=== PATIENT | male | born 1950 | race African-American/Black ===

== ENCOUNTER 2017-04-10 20:28 | Emergency (ER) | payer MEDICAID, MEDICARE, OTHER ==
[~2017-04-10] VITALS: Ht 182.9 cm; Wt 127.0 kg
[2017-04-11] MEDS ORDERED: HYDROcodone-ACET 5/325MG TAB PO ONE (00:15)
[2017-04-11] MEDS ORDERED: HYDROcodone-ACET 10/325MG TAB PO ONE ×2 (00:45)
[2017-04-11] MEDS ORDERED: TETANUS-DIPTH-ACEL PERTUSSIS 0.5ML SYRG IM ONE (00:45)
[2017-04-11 01:30] VITALS: BP 118/80
== END 2017-04-11 01:57 | disposition home or self-care (01) ==
LOC: ER 20:33
DX: S62.115A Nondisplaced fracture of triquetrum [cuneiform] bone, left wrist, initial encounter for closed fracture (principal); I10 Essential (primary) hypertension; M25.512 Pain in left shoulder; M19.90 Unspecified osteoarthritis, unspecified site; M25.522 Pain in left elbow; W19.XXXA Unspecified fall, initial encounter; Y93.89 Activity, other specified; Y99.8 Other external cause status; Y92.89 Other specified places as the place of occurrence of the external cause
CPT/HCPCS: 29125; 73020; 73080; 73110; 90715

== ENCOUNTER 2017-05-26 10:18 | Emergency (ER) | payer OTHER ==
[~2017-05-26] VITALS: Ht 185.4 cm; Wt 121.1 kg
[2017-05-26 10:25] VITALS: BP 156/74
[2017-05-26] MEDS ORDERED: KETOROLAC TROMETH 60MG/2ML VIAL IM ONE (12:15)
== END 2017-05-26 17:10 | disposition home or self-care (01) ==
LOC: ER 10:27
DX: S93.401A Sprain of unspecified ligament of right ankle, initial encounter (principal); M19.90 Unspecified osteoarthritis, unspecified site; I10 Essential (primary) hypertension; E66.9 Obesity, unspecified; Z68.35 Body mass index [BMI] 35.0-35.9, adult; X50.9XXA Other and unspecified overexertion or strenuous movements or postures, initial encounter; Y93.01 Activity, walking, marching and hiking; Y92.096 Garden or yard of other non-institutional residence as the place of occurrence of the external cause; Y99.8 Other external cause status
CPT/HCPCS: 73610; 96372; 99284; J1885

== ENCOUNTER 2019-07-12 15:06 | Emergency (ER) | payer OTHER ==
[~2019-07-12] VITALS: Ht 182.9 cm; Wt 127.0 kg
[~2019-07-12 15:06] MED LIST: AML5T PO; BACL10TA PO; FOLI1TAB6 PO; GABA-339 PO; HYDR-4798 PO; THIA100T10 PO; TRAZ150T84 PO
[2019-07-12 16:03] LABS: Basophils # (auto) 0.1 uL; Basophils % (auto) 1.2 % (0.0-2.0); Eosinophils # (auto) 0.1 uL; Eosinophils % (auto) 2.1 % (0.0-7.0); Hematocrit 42.8 % (41.0-53.0); Hemoglobin 14.3 g/dL (13.5-17.5); Lymphocytes # (auto) 1.7 uL; Lymphocytes % (auto) 31.2 % (10.0-50.0); Mean Corpuscular Hemoglobin 29.2 pg (28.0-32.0); Mean Corpuscular Hgb Conc. 33.5 g/dL (32.0-36.0); Mean Corpuscular Volume 87.1 fL (80.0-100.0); Monocytes # (auto) 0.5 uL; Monocytes % (auto) 9.5 % (0.0-12.0); Neutrophils # (auto) 3.1 uL; Platelet Count (auto) 241 10^3/uL (140-450); Red Blood Cells 4.91 10^6/uL (4.5-5.90); White Blood Cell 5.5 10^3/uL (4.4-10.8)
[2019-07-12 16:20] LABS: Salicylate < 1.7 mg/dL (2.8-20.0)
[2019-07-12 16:21] LABS: Albumin 3.2 g/dL (3.4-5.0); Calcium 8.5 mg/dL (8.5-10.1); Potassium 3.7 mmol/L (3.5-5.1)
[2019-07-12 16:25] LABS: Acetaminophen < 2.0 ug/mL (10-30)
[2019-07-12 16:29] LABS: BUN/Creatinine Ratio 10.4; Bilirubin, Total 0.3 mg/dL (0.2-1.0); Total Protein 7.4 g/dL (6.4-8.2)
[2019-07-12 17:24] LABS: Urine Bacteria NONE SEEN /hpf (None Seen); Urine Blood Negative /uL (Negative); Urine Specific Gravity 1.005 (1.001-1.035); Urine WBC <1 /hpf (0 - 3)
[2019-07-12 17:27] LABS: Amphetamine Screen, Urine NEGATIVE (NEGATIVE); Barbiturate Scree,Urine NEGATIVE (NEGATIVE); Benzodiazephine Screen, Urine POSITIVE (NEGATIVE); Cannabinoid Screen, Urine NEGATIVE (NEGATIVE); Cocaine Screen, Urine NEGATIVE (NEGATIVE); Phencyclidine Screen, Urine NEGATIVE (NEGATIVE)
[2019-07-12 18:00] LABS: Opiate Scree,Urine NEGATIVE (NEGATIVE)
[2019-07-13] MEDS ORDERED: FAMOTIDINE 20 MG TAB PO ONE (00:45)
[2019-07-13] MEDS ORDERED: DONNATAL 5ml ORAL Elix (BELLADONNA ALK-PHENOBARB) PO ONE (03:15)
[2019-07-13] MEDS ORDERED: ALUM & MAG HYDROX-SIMETH LIQ(MAALOX) 30 ML PO ONE (03:15)
[2019-07-13] MEDS ORDERED: LIDOCAINE VISCOUS 2% 15ML UD PO ONE (03:15)
[2019-07-13] MEDS ORDERED: cloNIDine HCL 0.1 MG TAB PO ONE (03:15)
[2019-07-13] MEDS ORDERED: OMEP20TA PO (08:17)
[2019-07-13] MEDS ORDERED: SERT-275 PO (08:17)
[2019-07-13] MEDS: amLODIPine BESYLATE 5 MG TAB PO SCH (11:56)
[2019-07-13] MEDS: PANTOPRAZOLE 40 MG TAB PO SCH (11:56)
[2019-07-13] MEDS: SERTRALINE HCL 50 MG TAB PO SCH (11:56)
[2019-07-13] MEDS: GABAPENTIN 300 MG CAP PO SCH ×2 (14:33→22:14)
[2019-07-13] MEDS: BACLOFEN 10 MG TAB PO SCH ×2 (14:33→22:14)
[2019-07-13] MEDS ORDERED: HYDROcodone-ACET 10/325MG TAB PO ONE (19:45)
[2019-07-13] MEDS ORDERED: traZODone HCL 50 MG TAB PO SCH (22:00)
[2019-07-14] MEDS: GABAPENTIN 300 MG CAP PO SCH (07:40)
[2019-07-14] MEDS: BACLOFEN 10 MG TAB PO SCH (07:40)
[2019-07-14] MEDS: PANTOPRAZOLE 40 MG TAB PO SCH (09:46)
[2019-07-14] MEDS: amLODIPine BESYLATE 5 MG TAB PO SCH (09:46)
[2019-07-14] MEDS: SERTRALINE HCL 50 MG TAB PO SCH (09:47)
[2019-07-14 09:56] VITALS: BP 125/82
== END 2019-07-14 10:24 | disposition short-term general hospital (02) ==
LOC: EDBD 15:06 → ER 15:06 → EDUNIT# 15:06 → ER 07-14 10:24
DX: R45.851 Suicidal ideations (principal); F32.9 Major depressive disorder, single episode, unspecified; F10.129 Alcohol abuse with intoxication, unspecified; I10 Essential (primary) hypertension; Y90.8 Blood alcohol level of 240 mg/100 ml or more
CPT/HCPCS: 36415; 80053; 80307; 80320; 80329; 81001; 85025; 94761; 99285; J7030

== ENCOUNTER 2019-08-28 14:47 | Inpatient (IN) | payer OTHER ==
[~2019-08-28] VITALS: Ht 182.9 cm; Wt 113.9 kg
--- NOTE | 2019-08-28 02:14 | NUR ---
Respiratory note: PT TAKEN OFF CPAP AT THIS TIME PER PT REQUEST. NO DISTRESS NOTED. HE IS AWARE TO CALL FOR RT IF HE WISHES TO GO BACK ON AGAIN.
[~2019-08-28 14:47] MED LIST changes: +OMEP20TA PO; +SERT-275 PO
[2019-08-28 17:23] LABS: White Blood Cell 12.3 10^3/uL (4.4-10.8)
[2019-08-28 17:32] LABS: Hematocrit 42.4 % (41.0-53.0); Hemoglobin 14.1 g/dL (13.5-17.5); Mean Corpuscular Hemoglobin 28.8 pg (28.0-32.0); Mean Corpuscular Hgb Conc. 33.2 g/dL (32.0-36.0); Mean Corpuscular Volume 86.9 fL (80.0-100.0); Platelet Count (auto) 186 10^3/uL (140-450); Red Blood Cells 4.88 10^6/uL (4.5-5.90); Red Cell Distribution Width 15.3 % (11.8-14.3)
[2019-08-28 17:39] LABS: Band Neutrophils % (manual) 0; Basophils % (manual) 0 (0.0-2.0); Blast Cells 0; Eosinophils % (manual) 0 (0-7); Metamyelocytes % 0; Myelocytes % 0; Promyelocytes % 0; Reactive Lymphocytes 0
[2019-08-28 17:43] LABS: Alanine Aminotransferase 13 U/L (16-61); Anion Gap 10 (5-15); Aspartate Aminotransferase 16 U/L (15-37); BUN/Creatinine Ratio 11.9; Blood Urea Nitrogen 15 mg/dL (7-18); Calcium 8.9 mg/dL (8.5-10.1); Carbon Dioxide 24 mmol/L (21-32); Chloride 101 mmol/L (98-107); GFR African American 73 mL/min; GFR Non-African American 60 mL/min; Glucose 115 mg/dL (74-106); Potassium 3.7 mmol/L (3.5-5.1); Sodium 135 mmol/L (136-145)
[2019-08-28 17:47] LABS: Alkaline Phosphatase 93 U/L (45-117); Bilirubin, Total 0.8 mg/dL (0.2-1.0); Total Protein 7.6 g/dL (6.4-8.2)
[2019-08-28 18:23] LABS: Urine WBC None Seen /hpf (0 - 3)
[2019-08-28 18:59] LABS: Urine Bacteria NONE SEEN /hpf (None Seen); Urine Blood Negative /uL (Negative); Urine Hyaline Cast MANY /lpf (0 - 2); Urine Specific Gravity 1.032 (1.001-1.035)
[2019-08-28 19:25] LABS: Lymphocytes % (manual) 6 (10.0-50.0); Monocytes % (manual) 6 (0-12)
[2019-08-28] MEDS ORDERED: NITROGLYCERIN 0.4 MG SL TAB SL PRN (19:45)
[2019-08-28] MEDS ORDERED: MORPHINE SULF INJ 2 MG/ML SYRINGE 1ML IV PRN (19:45)
[2019-08-28 22:05] VITALS: BP 158/78
[2019-08-28] MEDS: METOPROLOL TARTRATE 25 MG TAB PO SCH (22:14)
[2019-08-28] MEDS: traZODone HCL 50 MG TAB PO SCH (22:14)
[2019-08-28 22:20] VITALS: BP 158/78
--- NOTE | 2019-08-28 22:30 | NUR ---
Telemetry admit from ER NEALNADYA admitted to Telemetry unit after SBAR received. Patient oriented to Skyla torre RN, unit, room, bed, and unit policies regarding patient care and visiting hours. Patient now on continuous telemetry monitoring, tele box # 28 and telemetry reading on arrival to unit is SR 75. Patient placed on bedside oxygen, weighed by bed scale and encouraged to call if they need something. All questions and concerns addressed, patient verbalized understanding. Note: Came per stretcher awake alert oriented x 4, not in respiratory distress, placed in the bed comfortably, vital checked.
[2019-08-28] MEDS: PIPERACILLIN-TAZOB 3.375GM 100 ML IV SCH (23:38)
[2019-08-29 00:35] VITALS: BP 158/78
--- NOTE | 2019-08-29 00:36 | NUR ---
returned call Martín returned call, updated on patient status and reason for call ,need pain med for back and hand, orders received of [place] 5/325mg..p.o x one. Continue care.
[2019-08-29] MEDS ORDERED: HYDROcodone-ACET 5/325MG TAB PO ONE (00:45)
[2019-08-29] MEDS ORDERED: PNEUMOCOCCAL VACC POLYS 25 MCG/0.5 ML VIAL IM ONE (01:30)
[2019-08-29 05:00] VITALS: BP 154/91
[2019-08-29] MEDS: PIPERACILLIN-TAZOB 3.375GM 100 ML IV SCH ×4 (05:45→23:58)
--- NOTE | 2019-08-29 06:08 | NUR ---
Patient wants the pneumonia vaccine on discharge day.
[2019-08-29 06:10] LABS: Basophils # (auto) 0 uL; Basophils % (auto) 0.5 % (0.0-2.0); Eosinophils # (auto) 0.2 uL; Eosinophils % (auto) 2.6 % (0.0-7.0); Hematocrit 38.3 % (41.0-53.0); Hemoglobin 12.9 g/dL (13.5-17.5); Lymphocytes # (auto) 0.8 uL; Lymphocytes % (auto) 8.2 % (10.0-50.0); Mean Corpuscular Hemoglobin 29.1 pg (28.0-32.0); Mean Corpuscular Hgb Conc. 33.7 g/dL (32.0-36.0); Mean Corpuscular Volume 86.5 fL (80.0-100.0); Monocytes # (auto) 0.8 uL; Monocytes % (auto) 9.1 % (0.0-12.0); Neutrophils # (auto) 7.3 uL; Neutrophils % (auto) 79.6 % (37.0-80.0); Nucleated Red Blood Cells % 0.1 %; Platelet Count (auto) 161 10^3/uL (140-450); Red Blood Cells 4.42 10^6/uL (4.5-5.90); Red Cell Distribution Width 15.5 % (11.8-14.3); White Blood Cell 9.2 10^3/uL (4.4-10.8)
--- NOTE | 2019-08-29 06:17 | NUR ---
Respiratory note: PT FOUND OFF OF THE CPAP AND ON RA BREATHING COMFORTABLY. POX 97%, HR 80, RR 16. NO SOB NOTED. CPAP REMAINS AT BEDSIDE.
[2019-08-29 06:28] LABS: INR 0.98 (0.9-1.15); Partial Thromboplastin Time 31.6 sec (23.64-32.05)
[2019-08-29 06:38] LABS: Potassium 3.5 mmol/L (3.5-5.1)
[2019-08-29 06:45] LABS: Albumin 2.6 g/dL (3.4-5.0); BUN/Creatinine Ratio 15.3; Total Protein 6.9 g/dL (6.4-8.2)
--- NOTE | 2019-08-29 07:21 | NUR ---
Care report given to Tiffanie Trinidad , to follow-up to hospitalist his pain med.and other home meds.to evaluate.
--- NOTE | 2019-08-29 07:44 | NUR ---
OPENING SHIFT NOTE: PATIENT RESTING IN BED, AWAKE. DISCUSSED PLAN OF CARE, UPDATED PATIENT CARE BOARD. CALL LIGHT WITHIN REACH. PATIENT VERBALIZED UNDERSTANDING. GAVE PATIENT SANI CLOTH FOR HANDS. BED ALARM IN PLACE. WILL CONTINUE TO MONITOR.
[2019-08-29 09:00] VITALS: BP 131/76
[2019-08-29] MEDS: FAMOTIDINE 20 MG TAB PO SCH (10:14)
[2019-08-29] MEDS: METOPROLOL TARTRATE 25 MG TAB PO SCH ×2 (10:14→23:05)
[2019-08-29] MEDS: LISINOPRIL 10 MG TAB PO SCH (10:14)
[2019-08-29] MEDS: SERTRALINE HCL 50 MG TAB PO SCH (10:15)
[2019-08-29 13:00] VITALS: BP 120/67
[2019-08-29 13:08] VITALS: BP 110/67
--- NOTE | 2019-08-29 14:55 | NUR ---
VOICEMAIL LEFT FOR Michael RIGGS REGARDING CT SCAN.
--- NOTE | 2019-08-29 15:20 | NUR ---
Michael RIGGS ROUNDING. NEW ORDERS GIVEN.
--- NOTE | 2019-08-29 15:43 | NUR ---
PAGED OVERHEAD PHYSICAL THERAPY
--- NOTE | 2019-08-29 15:45 | NUR ---
SPOKE WITH MD Michael RIGGS REGARDING PAIN MEDS. NEW ORDERS GIVEN.
--- NOTE | 2019-08-29 16:00 | NUR ---
SPOKE WITH JESSICA SENIOR GL ACCOUNTANT. INFORMED HER OF CT TO STILL BE DONE, WELL MRI PER MD Michael RIGGS REQUEST.
--- NOTE | 2019-08-29 16:20 | NUR ---
DR. PANIAGUA AT BEDSIDE.
--- NOTE | 2019-08-29 16:28 | NUR ---
PAGE TO PHYSICAL THERAPY MADE BY THIS RN.
--- NOTE | 2019-08-29 16:40 | NUR ---
PAGED OVERHEAD PHYSICAL THERAPY.
--- NOTE | 2019-08-29 16:43 | NUR ---
D/C Planning Per Consult for home health safety evaluation. Contacted [facility] ph:) Fax:) faxed medical records. Per Shawna from [facility] Pt has been accepted and service to start within 48hrs upon d/c day. Contacted [facility] ph:) fax:) faxed medical records regarding authorization. Addendum: 08/29/19 at 1646 by ROYA ARITA Amended: Links added.
[2019-08-29] MEDS: IBUPROFEN 800 MG TAB PO PRN (16:45)
--- NOTE | 2019-08-29 16:46 | NUR ---
PAGED PHYSICAL THERAPY JYOTI, VOICEMAIL LEFT BY THIS RN.
--- NOTE | 2019-08-29 16:50 | NUR ---
HOSE CEMENTER CALLED, REGARDING JYOTI WITH PHYSICAL THERAPY.
--- NOTE | 2019-08-29 17:04 | NUR ---
PHYSICAL THERAPY AT BEDSIDE. PATIENT UNABLE TO TRANSFER TO CHAIR AT THIS TIME, PHYSICAL THERAPIST JYOTI RECCOMENDING SNF.
--- NOTE | 2019-08-29 17:05 | NUR ---
MD Michael RIGGS MADE AWARE OF PHYSICAL THERAPY EVAL. SNF PAPERWORK PRINTED.
--- NOTE | 2019-08-29 17:07 | NUR ---
PATIENT TAKEN DOWN TO MRI.
--- NOTE | 2019-08-29 18:10 | NUR ---
PATIENT BACK FROM RADIOLOGY.
--- NOTE | 2019-08-29 18:30 | NUR ---
CLOSING SHIFT NOTE: PATIENT RESTING IN BED. IV RE-INITIATED. BED ALARM IN PLACE. CALL LIGHT WITHIN REACH. UPDATED ON PLAN OF CARE REGARDING DISCHARGE PLANNING. PATIENT VERBALIZED UNDERSTANDING. BED LOCKED AND IN LOWEST POSITION. EDUCATED PATIENT TO CALL FOR ANY ASSISTANCE. WILL ENDORSE CARE TO NOC RN.
--- NOTE | 2019-08-29 18:51 | NUR ---
FAX SENT TO [facility]: PER REQUEST FROM [facility], MEDICAID BILLING SPECIALIST FOR SNF PLACEMENT.
--- NOTE | 2019-08-29 19:22 | NUR ---
CARE ENDORSED TO KEMI FRANK
--- NOTE | 2019-08-29 19:27 | NUR ---
Opening Shift Note Assumed care of patient, awake and alert. No S/S of distress/SOB or pain. Instructed on POC and to call for assist PRN, will continue to monitor for changes Q1hr and PRN.
[2019-08-29 21:34] VITALS: BP 117/63
--- NOTE | 2019-08-29 22:19 | NUR ---
RT NOTE PT WAS SEEN BY RT FOR PLACEMENT OF CPAP FOR THE NIGHT. PT STATES THAT HE IS NOT READY TO GO ON YET AND COULD RT RETURN AROUND MIDNIGHT. NO SOB OR DISTRESS NOTED AT THIS TIME. CONT ORDERED Addendum: 08/29/19 at 2224 by Vivian Connor RT SPOKE WITH MONIKA MCMULLEN. WILL CALL IF PT CHANGES HIS MIND.
[2019-08-29] MEDS: traZODone HCL 50 MG TAB PO SCH (23:05)
--- NOTE | 2019-08-30 00:19 | NUR ---
RT NOTE PT WAS SEEN BY RT FOR CPAP PLACEMENT AT THIS TIME. PT STATES IF HE IS ALREADY ASLEEP, PLEASE DO NOT AWAKEN HIM. PT STATES HE WOULD TRY CPAP ONLY IF STILL AWAKE AT MIDNIGHT CHECK. RN KEMI AWARE PT REFUSED CPAP FOR THE NIGHT AND WILL CALL IF HE CHANGES HIS MIND. NO SOB OR DISTRESS NOTED AT THIS TIME. CONT ORDERED
[2019-08-30 05:00] VITALS: BP 140/87
[2019-08-30] MEDS: PIPERACILLIN-TAZOB 3.375GM 100 ML IV SCH (06:00)
--- NOTE | 2019-08-30 07:17 | NUR ---
Respiratory note: Pt not wearing CPAP at this time. Pt sleeping comfortably in bed, no s/s of respiratory distress noted. HR 72, RR 16, POX 97% on room air. Breath sounds clear throughout. Pt says he slept with no issues last night, but does want to wear the CPAP tonight. Will endorse pt care to noc shift RT.
--- NOTE | 2019-08-30 07:22 | NUR ---
SHIFT CLOSING NOTE. ENDORSED CARE OF PATIENT TO DAY SHIFT, MONIKA BROWER.
--- NOTE | 2019-08-30 07:28 | NUR ---
OPENING SHIFT NOTE: PATIENT ASLEEP IN BED, SIDE-LYING. BREATHING EVEN AND UNLABORED. BED IN LOWEST LOCKED POSITION. CALL LIGHT WITHIN REACH. WILL CONTINUE TO MONITOR.
[2019-08-30 09:00] VITALS: BP 117/69
[2019-08-30] MEDS: LISINOPRIL 10 MG TAB PO SCH (09:08)
[2019-08-30] MEDS: FAMOTIDINE 20 MG TAB PO SCH (09:08)
[2019-08-30] MEDS: SERTRALINE HCL 50 MG TAB PO SCH (09:09)
[2019-08-30] MEDS: METOPROLOL TARTRATE 25 MG TAB PO SCH (10:10)
--- NOTE | 2019-08-30 10:37 | NUR ---
PATIENT HAS FWW BROUGHT IN BY FAMILY AT BEDSIDE.
[2019-08-30] MEDS: IBUPROFEN 800 MG TAB PO PRN (10:42)
--- NOTE | 2019-08-30 11:03 | NUR ---
PATIENT UP OUT OF BED WITH PHYSICAL THERAPY USING WALKER.
--- NOTE | 2019-08-30 11:04 | NUR ---
DC PLANNING- SNF TRANSFER SPOKE WITH ROYA MORENO, [facility] TO ACCEPT PATIENT THIS AFTERNOON. ROOM 52B, AT 3PM BY [facility], ACCEPTING MD IS Amador JANE.
[2019-08-30 12:36] LABS: Hepatitis A Ab IgM Negative; Hepatitis B Core IgM Negative; Hepatitis B Surface Antigen Negative (Negative)
[2019-08-30 12:37] LABS: Hepatitis C Antibody Negative (Negative)
[2019-08-30 13:00] VITALS: BP 95/38
--- NOTE | 2019-08-30 15:46 | NUR ---
D/C Planning Per consult for SNF placement for physical therapy. Contacted and faxed medical records to [facility], [facility] and [facility]. Per Cruzito from [facility] Pt has been accepted to room 52[address] accepting MD Dr. Amador Elizabeth. Contacted [facility] transport ph:) Fax:) faxed transport form request. Advised Sheldon from [facility] transport to arrange transportation between the hours 15:30-16:00. Informed MONIKA Jacques. Addendum: 08/30/19 at 1600 by ROYA ARITA Amended: Links added.
--- NOTE | 2019-08-30 16:08 | NUR ---
DISCHARGE NOTE: PATIENT DISCHARGED TO SNF. [facility] TOOK PATIENT BY [facility]. PATIENT ABLE TO TRANSFER TO [facility]. PATIENT LEFT WITH ALL BELONGINGS AND PERSONAL WALKER. EVEN AND UNLABORED RESPIRATIONS NOTED NO SIGNS OF DISTRESS. IV DISCONTINUED. MANUAL PRESSURE APPLIED. CATHETER INTACT. ADDRESSED ALL CONCERNS.
== END 2019-08-30 16:06 | DRG 291 ==
LOC: EDBD 14:47 → EDUNIT# 14:47 → ER 14:47 → EDSEX 14:47 → TELE 14:48 → TELE-CENTR 22:32
PROVIDERS: ADMIT Nurse Practitioner Acute Care; ATTEND Internal Medicine
DX: I11.0 Hypertensive heart disease with heart failure (principal); I50.31 Acute diastolic (congestive) heart failure; E44.1 Mild protein-calorie malnutrition; R07.9 Chest pain, unspecified; E86.0 Dehydration; G47.33 Obstructive sleep apnea (adult) (pediatric); K21.9 Gastro-esophageal reflux disease without esophagitis; F31.9 Bipolar disorder, unspecified; E66.9 Obesity, unspecified; D72.829 Elevated white blood cell count, unspecified; M19.90 Unspecified osteoarthritis, unspecified site; M54.30 Sciatica, unspecified side; G89.29 Other chronic pain; Z74.01 Bed confinement status; Z79.899 Other long term (current) drug therapy; Z80.42 Family history of malignant neoplasm of prostate; Z68.34 Body mass index [BMI] 34.0-34.9, adult
CPT/HCPCS: 36415; 71045; 72131; 72148; 76705; 80053; 80074; 81001; 83880; 84484; 85007; 85025; 85027; 85610; 85730; 86141; 87081; 93971; 94660; 96365; 97116; 97163; 97530; G0378; J2543

== ENCOUNTER 2020-03-20 15:57 | Emergency (ER) | payer OTHER ==
[~2020-03-20] VITALS: Ht 185.4 cm; Wt 100.2 kg
[~2020-03-20 15:57] MED LIST changes: -AML5T PO; -BACL10TA PO; +ENO100SY SC; -GABA-339 PO; -HYDR-4798 PO; +LEVO500T21 PO; +METR500T PO; +WARF3TAB22 PO
[2020-03-20] MEDS ORDERED: SODIUM CHLORIDE 0.9% 1,000 ML IV ONE (16:07)
[2020-03-20 16:59] LABS: Basophils # (auto) 0 10 ^3/uL (0-0.2); Eosinophils # (auto) 0.1 10 ^3/uL (0-0.8); Lymphocytes # (auto) 1.5 10 ^3/uL (0.4-5.4); Mean Corpuscular Hemoglobin 26.9 pg (28.0-32.0); Monocytes # (auto) 0.3 10 ^3/uL (0-1.3); Nucleated Red Blood Cells % 0.2 %
[2020-03-20 17:01] LABS: Basophils % (auto) 0.5 % (0.0-2.0); Eosinophils % (auto) 1.6 % (0.0-7.0); Hematocrit 42.9 % (41.0-53.0); Lymphocytes % (auto) 24.4 % (10.0-50.0); Mean Corpuscular Hgb Conc. 32.7 g/dL (32.0-36.0); Mean Corpuscular Volume 82.3 fL (80.0-100.0); Monocytes % (auto) 5.7 % (0.0-12.0); Neutrophils % (auto) 67.8 % (37.0-80.0); Platelet Count (auto) 145 10^3/uL (140-450); Red Blood Cells 5.21 10^6/uL (4.5-5.90); Red Cell Distribution Width 14.8 % (11.8-14.3); White Blood Cell 5.9 10^3/uL (4.4-10.8)
[2020-03-20 17:10] LABS: Alanine Aminotransferase 18 U/L (16-61); Albumin 3.5 g/dL (3.4-5.0); Anion Gap 11 (5-15); Aspartate Aminotransferase 21 U/L (15-37); BUN/Creatinine Ratio 11.7; Blood Urea Nitrogen 11 mg/dL (7-18); Calcium 8.4 mg/dL (8.5-10.1); Carbon Dioxide 20 mmol/L (21-32); Chloride 108 mmol/L (98-107); GFR African American 102 mL/min; GFR Non-African American 85 mL/min; Glucose 84 mg/dL (74-106); Potassium 3.3 mmol/L (3.5-5.1); Sodium 139 mmol/L (136-145)
[2020-03-20 17:14] LABS: Alkaline Phosphatase 120 U/L (45-117); Bilirubin, Total 0.4 mg/dL (0.2-1.0); Total Protein 7.2 g/dL (6.4-8.2)
[2020-03-20 18:10] LABS: Amphetamine Screen, Urine NEGATIVE (NEGATIVE); Barbiturate Scree,Urine NEGATIVE (NEGATIVE); Benzodiazephine Screen, Urine NEGATIVE (NEGATIVE); Cannabinoid Screen, Urine NEGATIVE (NEGATIVE); Cocaine Screen, Urine NEGATIVE (NEGATIVE); Opiate Scree,Urine NEGATIVE (NEGATIVE); Phencyclidine Screen, Urine NEGATIVE (NEGATIVE)
[2020-03-20 18:33] VITALS: BP 138/87
== END 2020-03-20 18:53 | disposition home or self-care (01) ==
LOC: EDBD 15:57 → ER 15:57
DX: F10.129 Alcohol abuse with intoxication, unspecified (principal); R55 Syncope and collapse
CPT/HCPCS: 36415; 70450; 80053; 80307; 80320; 84484; 85025; 93005; 96360; 99285; J7030; J7040

== ENCOUNTER 2020-06-22 16:21 | Emergency (ER) | payer OTHER, MEDICAID ==
[~2020-06-22] VITALS: Ht 185.4 cm; Wt 113.4 kg
[2020-06-22 16:26] VITALS: BP 115/64
== END 2020-06-23 01:47 | disposition left against medical advice (07) ==
LOC: EDBD 16:21 → EDUNIT# 16:21 → ER 16:21
DX: R51 Headache (principal); M54.2 Cervicalgia; Z53.21 Procedure and treatment not carried out due to patient leaving prior to being seen by health care provider
CPT/HCPCS: 70450; 72125

== ENCOUNTER 2020-06-28 11:47 | Emergency (ER) | payer OTHER, MEDICAID ==
[~2020-06-28] VITALS: Ht 182.9 cm; Wt 108.9 kg
[2020-06-28] MEDS ORDERED: ACETAMINOPHEN 325 MG TAB PO ONE (13:30)
[2020-06-28 14:03] VITALS: BP 125/88
== END 2020-06-28 14:12 | disposition home or self-care (01) ==
LOC: EDBD 11:47 → ER 11:47
DX: S00.03XA Contusion of scalp, initial encounter (principal); W18.39XA Other fall on same level, initial encounter; Y93.89 Activity, other specified; Y92.89 Other specified places as the place of occurrence of the external cause; Y99.8 Other external cause status

== ENCOUNTER 2020-10-01 19:48 | Emergency (ER) | payer OTHER, MEDICAID ==
[~2020-10-01] VITALS: Ht 182.9 cm; Wt 111.1 kg
[2020-10-01 20:02] VITALS: BP 131/81
[2020-10-01 20:33] LABS: Basophils # (auto) 0.1 10 ^3/uL (0-0.2); Basophils % (auto) 1.6 % (0.0-2.0); Eosinophils # (auto) 0.1 10 ^3/uL (0-0.8); Eosinophils % (auto) 2.3 % (0.0-7.0); Hemoglobin 12.9 g/dL (13.5-17.5); Lymphocytes % (auto) 22.1 % (10.0-50.0); Mean Corpuscular Hemoglobin 31.1 pg (28.0-32.0); Mean Corpuscular Hgb Conc. 33.8 g/dL (32.0-36.0); Monocytes # (auto) 0.4 10 ^3/uL (0-1.3); Neutrophils # (auto) 2.9 10 ^3/uL (1.6-8.6); Nucleated Red Blood Cells % 0.2 %; Platelet Count (auto) 208 10^3/uL (140-450); Red Blood Cells 4.14 10^6/uL (4.5-5.90); Red Cell Distribution Width 14.5 % (11.8-14.3); White Blood Cell 4.5 10^3/uL (4.4-10.8)
[2020-10-01 20:55] LABS: INR 0.96 (0.9-1.15); Partial Thromboplastin Time 22.7 sec (23.0-31.2)
[2020-10-01 20:58] LABS: Albumin 3.5 g/dL (3.4-5.0); Anion Gap 11 (5-15); Blood Urea Nitrogen 22 mg/dL (7-18); Calcium 8.7 mg/dL (8.5-10.1); Carbon Dioxide 20 mmol/L (21-32); Chloride 112 mmol/L (98-107); Glucose 89 mg/dL (74-106); Potassium 3.5 mmol/L (3.5-5.1); Sodium 143 mmol/L (136-145)
[2020-10-01 21:04] LABS: Alanine Aminotransferase 16 U/L (16-61); Alkaline Phosphatase 88 U/L (45-117); Aspartate Aminotransferase 19 U/L (15-37); BUN/Creatinine Ratio 17.9; Bilirubin, Total 0.2 mg/dL (0.2-1.0); GFR African American 75 mL/min; GFR Non-African American 62 mL/min; Total Protein 7.5 g/dL (6.4-8.2)
== END 2020-10-01 22:22 | disposition left against medical advice (07) ==
LOC: ER 19:51
DX: R07.89 Other chest pain (principal); Z53.21 Procedure and treatment not carried out due to patient leaving prior to being seen by health care provider
CPT/HCPCS: 36415; 71045; 80053; 83880; 84484; 85025; 85610; 85730

== ENCOUNTER 2021-02-13 20:38 | Emergency (ER) | payer OTHER, MEDICAID ==
[~2021-02-13] VITALS: Ht 188 cm; Wt 108.9 kg
[~2021-02-13 20:38] MED LIST changes: -LEVO500T21 PO; +LEVO500T31 PO
[2021-02-13 20:40] VITALS: BP 142/78
== END 2021-02-13 23:17 | disposition home or self-care (01) ==
LOC: EDBD 20:38 → ER 20:38
DX: S43.401A Unspecified sprain of right shoulder joint, initial encounter (principal); S70.11XA Contusion of right thigh, initial encounter; F10.129 Alcohol abuse with intoxication, unspecified; I10 Essential (primary) hypertension; Y90.8 Blood alcohol level of 240 mg/100 ml or more; W18.39XA Other fall on same level, initial encounter; Y93.89 Activity, other specified; Y92.89 Other specified places as the place of occurrence of the external cause; Y99.8 Other external cause status
CPT/HCPCS: 73030; 93005

== ENCOUNTER 2021-06-19 20:31 | Emergency (ER) | payer OTHER, MEDICAID ==
[~2021-06-19] VITALS: Ht 182.9 cm; Wt 129.3 kg
[~2021-06-19 20:31] MED LIST changes: -SERT-275 PO; +SERT25TA14 PO
[2021-06-19 23:13] LABS: Basophils # (auto) 0 10 ^3/uL (0-0.2); Basophils % (auto) 0.7 % (0.0-2.0); Eosinophils # (auto) 0.1 10 ^3/uL (0-0.8); Eosinophils % (auto) 1.8 % (0.0-7.0); Hematocrit 38.2 % (41.0-53.0); Hemoglobin 12.6 g/dL (13.5-17.5); Lymphocytes # (auto) 1.2 10 ^3/uL (0.4-5.4); Lymphocytes % (auto) 25.1 % (10.0-50.0); Mean Corpuscular Hemoglobin 28.9 pg (28.0-32.0); Mean Corpuscular Volume 87.4 fL (80.0-100.0); Monocytes # (auto) 0.3 10 ^3/uL (0-1.3); Monocytes % (auto) 7.1 % (0.0-12.0); Neutrophils # (auto) 3.1 10 ^3/uL (1.6-8.6); Neutrophils % (auto) 65.3 % (37.0-80.0); Red Blood Cells 4.38 10^6/uL (4.5-5.90); Red Cell Distribution Width 18.2 % (11.8-14.3); White Blood Cell 4.7 10^3/uL (4.4-10.8)
[2021-06-19 23:29] LABS: Albumin 3.4 g/dL (3.4-5.0); Anion Gap 11 (5-15); Blood Urea Nitrogen 22 mg/dL (7-18); Calcium 8.5 mg/dL (8.5-10.1); Carbon Dioxide 20 mmol/L (21-32); Chloride 112 mmol/L (98-107); Glucose 81 mg/dL (74-106); Potassium 3.7 mmol/L (3.5-5.1); Sodium 143 mmol/L (136-145)
[2021-06-19 23:34] LABS: Alanine Aminotransferase 29 U/L (16-61); Alkaline Phosphatase 119 U/L (45-117); Aspartate Aminotransferase 26 U/L (15-37); BUN/Creatinine Ratio 18.5; Bilirubin, Total 0.2 mg/dL (0.2-1.0); GFR African American 78 mL/min; GFR Non-African American 64 mL/min; Total Protein 7.5 g/dL (6.4-8.2)
[2021-06-20] MEDS ORDERED: KETOROLAC TROMETH 30 MG/ML 1ML VIAL IV ONE (02:15)
[2021-06-20 05:23] VITALS: BP 169/86
[2021-06-20 05:25] LABS: Urine Bacteria FEW /hpf (None Seen); Urine Blood Negative /uL (Negative); Urine Mucus FEW (None Seen); Urine Specific Gravity 1.011 (1.001-1.035); Urine WBC 1 /hpf (0 - 3)
== END 2021-06-20 05:55 | disposition home or self-care (01) ==
LOC: EDBD 20:31 → ER 20:31 → EDUNIT# 20:31 → ER 06-20 05:55
DX: S70.11XA Contusion of right thigh, initial encounter (principal); S70.01XA Contusion of right hip, initial encounter; S93.431A Sprain of tibiofibular ligament of right ankle, initial encounter; S00.93XA Contusion of unspecified part of head, initial encounter; R55 Syncope and collapse; F10.129 Alcohol abuse with intoxication, unspecified; I10 Essential (primary) hypertension; K21.9 Gastro-esophageal reflux disease without esophagitis; I48.91 Unspecified atrial fibrillation; W18.39XA Other fall on same level, initial encounter; Y93.89 Activity, other specified; Y92.89 Other specified places as the place of occurrence of the external cause; Y99.8 Other external cause status; Y90.8 Blood alcohol level of 240 mg/100 ml or more
CPT/HCPCS: 36415; 70450; 72192; 73560; 73590; 80053; 80320; 81001; 84484; 85025; 93005; 96374; 99285; J1885

== ENCOUNTER 2021-10-11 07:15 | Emergency (ER) | payer OTHER, MEDICAID ==
[~2021-10-11] VITALS: Ht 188 cm; Wt 117.9 kg
[2021-10-11 08:21] LABS: Basophils # (auto) 0 10 ^3/uL (0-0.2); Basophils % (auto) 0.9 % (0.0-2.0); Eosinophils # (auto) 0.1 10 ^3/uL (0-0.8); Eosinophils % (auto) 1.7 % (0.0-7.0); Hematocrit 36.1 % (41.0-53.0); Hemoglobin 11.9 g/dL (13.5-17.5); Lymphocytes # (auto) 0.6 10 ^3/uL (0.4-5.4); Lymphocytes % (auto) 12.2 % (10.0-50.0); Mean Corpuscular Hemoglobin 29.6 pg (28.0-32.0); Mean Corpuscular Volume 89.7 fL (80.0-100.0); Monocytes # (auto) 0.5 10 ^3/uL (0-1.3); Neutrophils # (auto) 3.9 10 ^3/uL (1.6-8.6); Neutrophils % (auto) 76.2 % (37.0-80.0); Nucleated Red Blood Cells % 0.1 %; Red Blood Cells 4.02 10^6/uL (4.5-5.90); Red Cell Distribution Width 17.5 % (11.8-14.3); White Blood Cell 5.2 10^3/uL (4.4-10.8)
[2021-10-11 08:38] LABS: Albumin 2.9 g/dL (3.4-5.0); Calcium 8.6 mg/dL (8.5-10.1); Potassium 4.1 mmol/L (3.5-5.1)
[2021-10-11 08:44] LABS: BUN/Creatinine Ratio 11.2; Total Protein 7.2 g/dL (6.4-8.2)
[2021-10-11 08:46] LABS: Urine WBC None Seen /hpf (0 - 3)
[2021-10-11 08:59] LABS: Urine Bacteria NONE SEEN /hpf (None Seen); Urine Blood Negative /uL (Negative); Urine Hyaline Cast FEW /lpf (0 - 2); Urine Mucus FEW (None Seen); Urine Specific Gravity 1.016 (1.001-1.035)
[2021-10-11 09:25] LABS: INR 1.05 (0.9-1.15); Partial Thromboplastin Time 29.1 sec (23.6-33.0)
[2021-10-11] MEDS ORDERED: SODIUM CHLORIDE 0.9% 1,000 ML IV ONE (11:15)
[2021-10-11] MEDS: MAGNESIUM SULFATE 1GM/100ML 100 ML IV SCH ×3 (12:13→15:22)
[2021-10-11] MEDS ORDERED: DexAMETHasone SOD PHOS 10MG/1ML VIAL INJ IV ONE (13:30)
[2021-10-11] MEDS ORDERED: COLCHICINE 0.6 MG CAP PO ONE (13:30)
[2021-10-11] MEDS ORDERED: cloNIDine HCL 0.1 MG TAB PO ONE (16:35)
[2021-10-11] MEDS ORDERED: IOHEXOL 350 MG/ML 100ML IJ ONE (16:39)
[2021-10-11 18:28] VITALS: BP 150/80
== END 2021-10-11 17:52 | disposition home or self-care (01) ==
LOC: ER 07:15 → EDBD 07:15 → ER 17:52
DX: R07.89 Other chest pain (principal); K21.9 Gastro-esophageal reflux disease without esophagitis; I10 Essential (primary) hypertension; M10.9 Gout, unspecified; E44.0 Moderate protein-calorie malnutrition; E83.42 Hypomagnesemia; E03.9 Hypothyroidism, unspecified; Z68.33 Body mass index [BMI] 33.0-33.9, adult
CPT/HCPCS: 36415; 71045; 71275; 73070; 73120; 73600; 80053; 81001; 83735; 83880; 84443; 84484; 84550; 85025; 85379; 85610; 85730; 93005; 96361; 96365; 96366; 96375; 99285; J1100; J3475; J7030; Q9967

== ENCOUNTER 2022-01-30 09:48 | Emergency (ER) | payer MEDICAID, OTHER ==
[~2022-01-30] VITALS: Ht 182.9 cm; Wt 108.9 kg
[2022-01-30] MEDS ORDERED: SODIUM CHLORIDE 0.9% 1,000 ML IVB ONE (11:00)
[2022-01-30] MEDS ORDERED: hydrALAZINE HCL 20 MG/ML VL IV ONE (11:00)
[2022-01-30] MEDS ORDERED: LORazepam 2MG/ML-1ML VIAL IV ONE ×3 (11:00→19:00)
[2022-01-30] MEDS ORDERED: LABETALOL HCL 5 MG/ML 4ML SYRINGE IV ONE (11:00)
[2022-01-30] MEDS ORDERED: PANTOPRAZOLE 40 MG TAB PO ONE (11:00)
[2022-01-30 11:17] LABS: Basophils # (auto) 0 10 ^3/uL (0-0.2); Basophils % (auto) 0.5 % (0.0-2.0); Eosinophils # (auto) 0 10 ^3/uL (0-0.8); Eosinophils % (auto) 0.3 % (0.0-7.0); Hematocrit 40.4 % (41.0-53.0); Hemoglobin 13.9 g/dL (13.5-17.5); Lymphocytes # (auto) 0.9 10 ^3/uL (0.4-5.4); Lymphocytes % (auto) 8.9 % (10.0-50.0); Mean Corpuscular Hemoglobin 30.9 pg (28.0-32.0); Mean Corpuscular Hgb Conc. 34.3 g/dL (32.0-36.0); Mean Corpuscular Volume 89.9 fL (80.0-100.0); Monocytes # (auto) 0.6 10 ^3/uL (0-1.3); Monocytes % (auto) 5.8 % (0.0-12.0); Neutrophils # (auto) 8.2 10 ^3/uL (1.6-8.6); Neutrophils % (auto) 84.5 % (37.0-80.0); Nucleated Red Blood Cells % 0.1 %; Red Blood Cells 4.49 10^6/uL (4.5-5.90); Red Cell Distribution Width 16.3 % (11.8-14.3); White Blood Cell 9.7 10^3/uL (4.4-10.8)
[2022-01-30 11:31] LABS: Partial Thromboplastin Time 21.1 sec (23.6-33.0)
[2022-01-30] MEDS ORDERED: ONDANSETRON HCL 4 MG/2 ML VIAL IV ONE ×3 (11:45→20:30)
[2022-01-30] MEDS ORDERED: FOLIC ACID 1 MG, MULTIPLE VITAMIN 10 ML, MAGNESIUM SULF SDV 50% 8 MEQ, THIAMINE INJ 100... INJ SCH ×5 (12:00)
[2022-01-30] MEDS ORDERED: PROCHLORPERAZINE EDISYLATE 5 MG/ML 2ML VIAL ONE (12:10)
[2022-01-30] MEDS ORDERED: PROCHLORPERAZINE EDISYLATE 5 MG/ML 2ML VIAL IV ONE (12:10)
[2022-01-30 13:47] LABS: Potassium 3.7 mmol/L (3.5-5.1)
[2022-01-30 13:48] LABS: Albumin 3.3 g/dL (3.4-5.0); BUN/Creatinine Ratio 17.6; Bilirubin, Total 0.6 mg/dL (0.2-1.0); Calcium 8.1 mg/dL (8.5-10.1); Magnesium 1.6 mg/dL (1.6-2.6); Total Protein 6.9 g/dL (6.4-8.2)
[2022-01-30 14:18] LABS: Urine Bacteria NONE SEEN /hpf (None Seen); Urine Blood Negative /uL (Negative); Urine Specific Gravity 1.015 (1.001-1.035); Urine WBC <1 /hpf (0 - 3)
[2022-01-30 14:34] LABS: Amphetamine Screen, Urine NEGATIVE (NEGATIVE); Barbiturate Scree,Urine NEGATIVE (NEGATIVE); Benzodiazephine Screen, Urine NEGATIVE (NEGATIVE); Cannabinoid Screen, Urine NEGATIVE (NEGATIVE); Cocaine Screen, Urine NEGATIVE (NEGATIVE); Opiate Scree,Urine NEGATIVE (NEGATIVE); Phencyclidine Screen, Urine NEGATIVE (NEGATIVE)
[2022-01-30] MEDS ORDERED: METOCLOPRAMIDE HCL 5MG/ml INJ 2ml VIAL ONE (16:57)
[2022-01-30] MEDS ORDERED: METOCLOPRAMIDE HCL 5MG/ml INJ 2ml VIAL IV ONE (17:00)
[2022-01-30] MEDS ORDERED: amLODIPine BESYLATE 5 MG TAB PO ONE (19:00)
[2022-01-30] MEDS ORDERED: THIAMINE 100mg/ml INJ (200mg/2ml VIAL) IV ONE (20:45)
[2022-01-30 22:27] VITALS: BP 159/69
== END 2022-01-30 22:53 | disposition short-term general hospital, planned readmission (82) ==
LOC: EDBD 09:48 → EDUNIT# 09:48 → ER 09:48
DX: S00.03XA Contusion of scalp, initial encounter (principal); I10 Essential (primary) hypertension; F10.239 Alcohol dependence with withdrawal, unspecified; I87.2 Venous insufficiency (chronic) (peripheral); F31.9 Bipolar disorder, unspecified; I48.91 Unspecified atrial fibrillation; Z86.718 Personal history of other venous thrombosis and embolism; K21.9 Gastro-esophageal reflux disease without esophagitis; Z79.01 Long term (current) use of anticoagulants; Z79.2 Long term (current) use of antibiotics; Z79.899 Other long term (current) drug therapy; Z20.822 Contact with and (suspected) exposure to COVID-19; X58.XXXA Exposure to other specified factors, initial encounter; Y92.89 Other specified places as the place of occurrence of the external cause; Y93.89 Activity, other specified; Y99.8 Other external cause status; Y90.3 Blood alcohol level of 60-79 mg/100 ml
CPT/HCPCS: 36415; 70450; 71046; 80053; 80307; 80320; 81001; 82962; 83690; 83735; 84443; 84484; 85025; 85610; 85730; 87426; 93005; 96365; 96366; 96367; 96375; 96376; 99285; J0360; J0780; J2060; J2405; J2765; J3411; J3475; J3490; J7030

== ENCOUNTER 2022-02-08 09:33 | Emergency (ER) | payer OTHER, MEDICAID ==
[~2022-02-08] VITALS: Ht 182.9 cm; Wt 108.9 kg
[2022-02-08] MEDS ORDERED: SODIUM CHLORIDE 0.9% 1,000 ML IV ONE ×2 (11:15)
[2022-02-08 13:03] LABS: Chloride 110 mmol/L (98-107); Sodium 140 mmol/L (136-145)
[2022-02-08 13:07] LABS: Alanine Aminotransferase 36 U/L (16-61); Albumin 2.6 g/dL (3.4-5.0); Anion Gap 7 (5-15); Aspartate Aminotransferase 23 U/L (15-37); Blood Alcohol < 3.0 mg/dL (0-5); Blood Urea Nitrogen 28 mg/dL (7-18); Calcium 9.2 mg/dL (8.5-10.1); Carbon Dioxide 23 mmol/L (21-32); GFR African American 83 mL/min; GFR Non-African American 69 mL/min; Glucose 79 mg/dL (74-106)
[2022-02-08 13:12] LABS: Alkaline Phosphatase 102 U/L (45-117); Bilirubin, Total 0.3 mg/dL (0.2-1.0); Total Protein 6.9 g/dL (6.4-8.2)
[2022-02-08 14:25] LABS: Basophils # (auto) 0 10 ^3/uL (0-0.2); Basophils % (auto) 0.4 % (0.0-2.0); Eosinophils # (auto) 0.1 10 ^3/uL (0-0.8); Eosinophils % (auto) 1.6 % (0.0-7.0); Hematocrit 30.1 % (41.0-53.0); Hemoglobin 10.1 g/dL (13.5-17.5); Lymphocytes # (auto) 0.6 10 ^3/uL (0.4-5.4); Lymphocytes % (auto) 8.1 % (10.0-50.0); Mean Corpuscular Hemoglobin 29.8 pg (28.0-32.0); Mean Corpuscular Hgb Conc. 33.5 g/dL (32.0-36.0); Mean Corpuscular Volume 88.9 fL (80.0-100.0); Monocytes # (auto) 0.5 10 ^3/uL (0-1.3); Monocytes % (auto) 7.5 % (0.0-12.0); Neutrophils # (auto) 5.7 10 ^3/uL (1.6-8.6); Neutrophils % (auto) 82.4 % (37.0-80.0); Red Blood Cells 3.38 10^6/uL (4.5-5.90); Red Cell Distribution Width 16.3 % (11.8-14.3); White Blood Cell 6.9 10^3/uL (4.4-10.8)
[2022-02-08 21:46] VITALS: BP 132/85
== END 2022-02-08 22:01 | disposition short-term general hospital (02) ==
LOC: EDBD 09:33 → ER 09:33
DX: F10.230 Alcohol dependence with withdrawal, uncomplicated (principal); G89.4 Chronic pain syndrome; I48.91 Unspecified atrial fibrillation; I10 Essential (primary) hypertension; K21.9 Gastro-esophageal reflux disease without esophagitis; Z79.01 Long term (current) use of anticoagulants; Z79.2 Long term (current) use of antibiotics; Z79.899 Other long term (current) drug therapy; Y90.0 Blood alcohol level of less than 20 mg/100 ml
CPT/HCPCS: 36415; 70450; 71045; 80053; 80320; 83880; 84484; 85007; 85025; 85027; 93005; 96360; 99285; J7030

== ENCOUNTER 2022-05-28 17:33 | Emergency (ER) | payer OTHER, MEDICAID ==
[~2022-05-28] VITALS: Ht 177.8 cm; Wt 117.9 kg
[2022-05-28 19:24] LABS: Hemoglobin 12.4 g/dL (13.5-17.5); White Blood Cell 7.6 10^3/uL (4.4-10.8)
[2022-05-28 19:26] LABS: Hematocrit 38.3 % (41.0-53.0); Mean Corpuscular Hemoglobin 26.7 pg (28.0-32.0); Mean Corpuscular Hgb Conc. 32.5 g/dL (32.0-36.0); Mean Corpuscular Volume 82.2 fL (80.0-100.0); Red Blood Cells 4.65 10^6/uL (4.5-5.90); Red Cell Distribution Width 16.8 % (11.8-14.3)
[2022-05-28 19:37] LABS: Basophils % (manual) 0 (0.0-2.0); Blast Cells 0; Myelocytes % 0; Promyelocytes % 0
[2022-05-28 19:40] LABS: Albumin 2.5 g/dL (3.4-5.0); Calcium 9.1 mg/dL (8.5-10.1)
[2022-05-28 19:43] LABS: BUN/Creatinine Ratio 13.8; Bilirubin, Total 4.6 mg/dL (0.2-1.0); Total Protein 7.1 g/dL (6.4-8.2)
[2022-05-28 19:48] LABS: Potassium 2.9 mmol/L (3.5-5.1)
[2022-05-28 20:10] LABS: Band Neutrophils % (manual) 2; Eosinophils % (manual) 1 (0-7); Lymphocytes % (manual) 21 (10.0-50.0); Metamyelocytes % 1; Monocytes % (manual) 3 (0-12); Reactive Lymphocytes 1
[2022-05-28] MEDS ORDERED: POTASSIUM CHL 20 Meq TABLET PO ONE (21:00)
[2022-05-28] MEDS ORDERED: MAGNESIUM SULFATE 1GM/100ML 100 ML IV ONE (21:00)
[2022-05-28] MEDS ORDERED: LABETALOL HCL 5 MG/ML 4ML SYRINGE IV ONE (21:00)
[2022-05-28 23:15] LABS: Urine Bacteria NONE SEEN /hpf (None Seen); Urine Blood Negative /uL (Negative); Urine Hyaline Cast FEW /lpf (0 - 2); Urine Specific Gravity 1.026 (1.001-1.035); Urine WBC 4 /hpf (0 - 3)
[2022-05-29] MEDS ORDERED: PANTOPRAZOLE 40 MG/10 ML VIAL INJ IV ONE (02:30)
[2022-05-29] MEDS ORDERED: LABETALOL HCL 5 MG/ML 4ML SYRINGE IV ONE (02:45)
[2022-05-29] MEDS ORDERED: SODIUM CHLORIDE 0.9% 1,000 ML IV ONE (02:45)
[2022-05-29] MEDS ORDERED: THIAMINE 100mg/ml INJ (200mg/2ml VIAL) IV ONE (02:45)
[2022-05-29 03:14] VITALS: BP 187/94
== END 2022-05-29 03:39 | disposition short-term general hospital (02) ==
LOC: EDUNIT# 17:33 → ER 17:33 → EDBD 17:33 → ER 05-29 03:39
DX: E83.42 Hypomagnesemia (principal); I10 Essential (primary) hypertension; E87.6 Hypokalemia; R79.89 Other specified abnormal findings of blood chemistry; F10.10 Alcohol abuse, uncomplicated; K21.9 Gastro-esophageal reflux disease without esophagitis; Z20.822 Contact with and (suspected) exposure to COVID-19
CPT/HCPCS: 36415; 71045; 74176; 76705; 80053; 80320; 81001; 82140; 83605; 83690; 83735; 84443; 84484; 85007; 85027; 87426; 93005; 96361; 96365; 96375; 96376; 99285; C9113; J3411; J3475; J3490; J7030

== ENCOUNTER 2022-07-08 08:15 | Emergency (ER) | payer OTHER, MEDICAID ==
[~2022-07-08] VITALS: Ht 185.4 cm; Wt 270.0 kg
[2022-07-08 09:16] LABS: Basophils # (auto) 0 10 ^3/uL (0-0.2); Eosinophils # (auto) 0.1 10 ^3/uL (0-0.8); Hemoglobin 11.7 g/dL (13.5-17.5); Monocytes # (auto) 0.5 10 ^3/uL (0-1.3)
[2022-07-08 09:19] LABS: Basophils % (auto) 0.6 % (0.0-2.0); Eosinophils % (auto) 1.1 % (0.0-7.0); Hematocrit 36.1 % (41.0-53.0); Lymphocytes # (auto) 0.6 10 ^3/uL (0.4-5.4); Lymphocytes % (auto) 11.5 % (10.0-50.0); Mean Corpuscular Hgb Conc. 32.4 g/dL (32.0-36.0); Mean Corpuscular Volume 80.2 fL (80.0-100.0); Neutrophils # (auto) 4.1 10 ^3/uL (1.6-8.6); Neutrophils % (auto) 76.8 % (37.0-80.0); Red Cell Distribution Width 15.8 % (11.8-14.3); White Blood Cell 5.3 10^3/uL (4.4-10.8)
[2022-07-08 09:34] LABS: Albumin 3.1 g/dL (3.4-5.0); Calcium 9.4 mg/dL (8.5-10.1); Potassium 3.9 mmol/L (3.5-5.1)
[2022-07-08 09:37] LABS: BUN/Creatinine Ratio 15.9; Bilirubin, Total 0.5 mg/dL (0.2-1.0); Total Protein 6.8 g/dL (6.4-8.2)
[2022-07-08 12:32] VITALS: BP 142/76
== END 2022-07-08 12:48 | disposition hospice, inpatient (51) ==
LOC: EDBD 08:15 → ER 08:15
DX: R53.1 Weakness (principal); I82.4Z2 Acute embolism and thrombosis of unspecified deep veins of left distal lower extremity; R60.0 Localized edema; I10 Essential (primary) hypertension; K21.9 Gastro-esophageal reflux disease without esophagitis; I48.91 Unspecified atrial fibrillation; Z90.89 Acquired absence of other organs; Z79.01 Long term (current) use of anticoagulants; Z79.2 Long term (current) use of antibiotics; Z79.899 Other long term (current) drug therapy; Z20.822 Contact with and (suspected) exposure to COVID-19
CPT/HCPCS: 36415; 71045; 80053; 85025; 85379; 93005; 93970

== ENCOUNTER 2023-03-13 17:31 | Inpatient (IN) | payer OTHER, MEDICAID ==
[~2023-03-13] VITALS: Ht 182.9 cm; Wt 136.4 kg
[2023-03-13 22:44] LABS: Hematocrit 45.2 % (41.0-53.0); Hemoglobin 15.4 g/dL (13.5-17.5); Mean Corpuscular Hemoglobin 29.5 pg (28.0-32.0); Mean Corpuscular Volume 86.8 fL (80.0-100.0); Red Cell Distribution Width 15.3 % (11.8-14.3); White Blood Cell 5.6 10^3/uL (4.4-10.8)
[2023-03-13 22:56] LABS: INR 0.95 (0.9-1.15); Partial Thromboplastin Time 22.9 sec (24.6-33.4)
[2023-03-13 22:57] LABS: Band Neutrophils % (manual) 0; Basophils % (manual) 0 (0.0-2.0); Blast Cells 0; Metamyelocytes % 0; Myelocytes % 0; Promyelocytes % 0; Reactive Lymphocytes 0
[2023-03-13 23:10] LABS: Albumin 3.5 g/dL (3.4-5.0); Calcium 8.5 mg/dL (8.5-10.1); Potassium 3.2 mmol/L (3.5-5.1)
[2023-03-13 23:11] LABS: Eosinophils % (manual) 4 (0-7); Lymphocytes % (manual) 28 (10.0-50.0); Monocytes % (manual) 4 (0-12); Salicylate < 1.7 mg/dL (2.8-20.0)
[2023-03-13 23:13] LABS: BUN/Creatinine Ratio 9.7 (10.0-20.0); Bilirubin, Total 0.2 mg/dL (0.2-1.0); Total Protein 7.4 g/dL (6.4-8.2)
[2023-03-13 23:14] LABS: Acetaminophen < 2.0 ug/mL (10-30)
[2023-03-14] MEDS ORDERED: ENOXAPARIN SOD 100 MG/1 ML SYRINGE SC ONE (00:30)
[2023-03-14 02:47] LABS: Urine Bacteria NONE SEEN /hpf (None Seen); Urine Blood Negative /uL (Negative); Urine Hyaline Cast FEW /lpf (0 - 2); Urine Mucus FEW (None Seen); Urine Specific Gravity 1.009 (1.001-1.035); Urine WBC 1 /hpf (0 - 3)
[2023-03-14 03:11] LABS: Amphetamine Screen, Urine NEGATIVE (NEGATIVE); Barbiturate Scree,Urine NEGATIVE (NEGATIVE); Benzodiazephine Screen, Urine NEGATIVE (NEGATIVE); Cannabinoid Screen, Urine NEGATIVE (NEGATIVE); Cocaine Screen, Urine NEGATIVE (NEGATIVE)
[2023-03-14] MEDS ORDERED: TEMAZEPAM 15 MG CAP PO PRN (03:15)
[2023-03-14] MEDS ORDERED: HYDROcodone-ACET 5/325MG TAB PO PRN (03:15)
[2023-03-14] MEDS ORDERED: chlordiazePOXIDE HCL 25 MG CAP PO PRN (03:15)
[2023-03-14] MEDS ORDERED: ACETAMINOPHEN 325 MG TAB PO PRN (03:15)
[2023-03-14] MEDS ORDERED: ONDANSETRON HCL 4 MG/2 ML VIAL IV PRN (03:15)
[2023-03-14] MEDS ORDERED: SODIUM CHLORIDE 0.9% 500 ML IV ONE (03:15)
[2023-03-14] MEDS ORDERED: POTASSIUM CHL 20 Meq TABLET PO ONE (03:15)
[2023-03-14 03:21] LABS: Opiate Scree,Urine NEGATIVE (NEGATIVE); Phencyclidine Screen, Urine NEGATIVE (NEGATIVE)
[2023-03-14] MEDS ORDERED: POTASSIUM EFFERVESENT TAB 25 MEQ PO ONE (03:30)
[2023-03-14] MEDS: PANTOPRAZOLE 40 MG TAB PO SCH (10:26)
[2023-03-14] MEDS: FUROSEMIDE 20 MG TAB PO SCH (10:26)
[2023-03-14] MEDS: SERTRALINE HCL 50 MG TAB PO SCH (10:26)
[2023-03-14] MEDS: FOLIC ACID 1 MG, MULTIPLE VITAMIN 10 ML, MAGNESIUM SULF SDV 50% 8 MEQ, THIAMINE INJ 100... INJ SCH ×5 (13:04)
[2023-03-14] MEDS: ENOXAPARIN SOD 120 MG/0.8 ML SYRINGE SC SCH (15:02)
[2023-03-14 23:30] VITALS: BP 151/86
[2023-03-15] MEDS: ENOXAPARIN SOD 120 MG/0.8 ML SYRINGE SC SCH ×2 (01:30→15:35)
[2023-03-15] MEDS ORDERED: hydrALAZINE HCL 20 MG/ML VL IV PRN (04:15)
[2023-03-15 05:00] VITALS: BP 162/98
[2023-03-15] MEDS ORDERED: FOLI1TAB6 PO (05:10)
[2023-03-15] MEDS ORDERED: OMEP20TA PO (05:10)
[2023-03-15] MEDS ORDERED: SERT50TA19 PO (05:14)
[2023-03-15] MEDS ORDERED: TRAZ1TAB12 PO (05:14)
[2023-03-15] MEDS ORDERED: THIA100T5 PO (05:14)
[2023-03-15 05:30] VITALS: BP 153/92
[2023-03-15 06:34] LABS: Calcium 8.9 mg/dL (8.5-10.1); Potassium 3.7 mmol/L (3.5-5.1)
[2023-03-15 06:35] LABS: Basophils # (auto) 0 10 ^3/uL (0-0.2); Basophils % (auto) 0.4 % (0.0-2.0); Eosinophils # (auto) 0.2 10 ^3/uL (0-0.8); Eosinophils % (auto) 3.1 % (0.0-7.0); Hematocrit 40.8 % (41.0-53.0); Hemoglobin 13.8 g/dL (13.5-17.5); Lymphocytes # (auto) 0.9 10 ^3/uL (0.4-5.4); Lymphocytes % (auto) 16.7 % (10.0-50.0); Mean Corpuscular Hemoglobin 29.3 pg (28.0-32.0); Mean Corpuscular Hgb Conc. 33.9 g/dL (32.0-36.0); Mean Corpuscular Volume 86.6 fL (80.0-100.0); Monocytes # (auto) 0.5 10 ^3/uL (0-1.3); Monocytes % (auto) 9.2 % (0.0-12.0); Neutrophils # (auto) 3.7 10 ^3/uL (1.6-8.6); Neutrophils % (auto) 70.6 % (37.0-80.0); Nucleated Red Blood Cells % 0.4 %; Red Blood Cells 4.72 10^6/uL (4.5-5.90); Red Cell Distribution Width 15.3 % (11.8-14.3); White Blood Cell 5.2 10^3/uL (4.4-10.8)
[2023-03-15 09:00] VITALS: BP 162/82
[2023-03-15] MEDS: SERTRALINE HCL 50 MG TAB PO SCH (09:53)
[2023-03-15] MEDS: PANTOPRAZOLE 40 MG TAB PO SCH (09:53)
[2023-03-15] MEDS: FUROSEMIDE 20 MG TAB PO SCH (09:54)
[2023-03-15] MEDS ORDERED: amLODIPine BESYLATE 5 MG TAB PO SCH (10:00)
[2023-03-15] MEDS: FOLIC ACID 1 MG, MULTIPLE VITAMIN 10 ML, MAGNESIUM SULF SDV 50% 8 MEQ, THIAMINE INJ 100... INJ SCH ×5 (12:00)
[2023-03-15 13:00] VITALS: BP 150/80
[2023-03-15] MEDS ORDERED: APIX5TAB PO (15:33)
[2023-03-15] MEDS ORDERED: AML5T PO (15:33)
[2023-03-15 16:50] VITALS: BP 163/90
== END 2023-03-15 18:18 | disposition home or self-care (01) | DRG 300 ==
LOC: EDBD 17:31 → ER 17:31 → OVERFLOW 03-14 03:06 → WEST WING 03-14 23:31
PROVIDERS: ADMIT Nurse Practitioner; ATTEND Internal Medicine
DX: I82.412 Acute embolism and thrombosis of left femoral vein (principal); F10.239 Alcohol dependence with withdrawal, unspecified; Z68.41 Body mass index [BMI] 40.0-44.9, adult; I87.2 Venous insufficiency (chronic) (peripheral); F32.A Depression, unspecified; I10 Essential (primary) hypertension; E66.01 Morbid (severe) obesity due to excess calories; F10.229 Alcohol dependence with intoxication, unspecified; I82.432 Acute embolism and thrombosis of left popliteal vein; M17.12 Unilateral primary osteoarthritis, left knee; E87.6 Hypokalemia; K21.9 Gastro-esophageal reflux disease without esophagitis; Z96.651 Presence of right artificial knee joint; F41.9 Anxiety disorder, unspecified; Z79.01 Long term (current) use of anticoagulants; Z80.42 Family history of malignant neoplasm of prostate; Z80.8 Family history of malignant neoplasm of other organs or systems; Z82.5 Family history of asthma and other chronic lower respiratory diseases; Z85.46 Personal history of malignant neoplasm of prostate; Z86.718 Personal history of other venous thrombosis and embolism; Z92.3 Personal history of irradiation; Z86.711 Personal history of pulmonary embolism
CPT/HCPCS: 36415; 70450; 71045; 71250; 72125; 73562; 74176; 80048; 80053; 80307; 80320; 80329; 81001; 82010; 83690; 83880; 83930; 84154; 84484; 85007; 85025; 85027; 85610; 85730; 93971; 96361; 96365; 96372; 99291; G0378; J2405

== ENCOUNTER 2023-03-24 17:28 | Inpatient (IN) | payer OTHER, MEDICAID ==
[~2023-03-24] VITALS: Ht 182.9 cm; Wt 133.2 kg
[~2023-03-24 17:28] MED LIST changes: +AML5T PO; +APIX5TAB PO; -ENO100SY SC; -LEVO500T31 PO; -METR500T PO; -SERT25TA14 PO; +SERT50TA19 PO; -THIA100T10 PO; +THIA100T5 PO; -TRAZ150T84 PO; +TRAZ1TAB12 PO; -WARF3TAB22 PO
[2023-03-24] MEDS ORDERED: ASPirin 325 MG TAB PO ONE (17:45)
[2023-03-24 18:45] LABS: Basophils # (auto) 0 10 ^3/uL (0-0.2); Basophils % (auto) 0.5 % (0.0-2.0); Eosinophils # (auto) 0.1 10 ^3/uL (0-0.8); Eosinophils % (auto) 1.2 % (0.0-7.0); Hematocrit 44.5 % (41.0-53.0); Hemoglobin 14.7 g/dL (13.5-17.5); Lymphocytes # (auto) 0.8 10 ^3/uL (0.4-5.4); Lymphocytes % (auto) 14.2 % (10.0-50.0); Mean Corpuscular Hemoglobin 29.1 pg (28.0-32.0); Mean Corpuscular Hgb Conc. 33.1 g/dL (32.0-36.0); Mean Corpuscular Volume 87.9 fL (80.0-100.0); Monocytes # (auto) 0.6 10 ^3/uL (0-1.3); Monocytes % (auto) 10.6 % (0.0-12.0); Neutrophils # (auto) 4.3 10 ^3/uL (1.6-8.6); Neutrophils % (auto) 73.5 % (37.0-80.0); Nucleated Red Blood Cells % 0.2 %; Red Blood Cells 5.06 10^6/uL (4.5-5.90); Red Cell Distribution Width 15.3 % (11.8-14.3); White Blood Cell 5.9 10^3/uL (4.4-10.8)
[2023-03-24 18:55] LABS: Albumin 3.7 g/dL (3.4-5.0); Calcium 9.4 mg/dL (8.5-10.1); Potassium 3.8 mmol/L (3.5-5.1)
[2023-03-24 18:59] LABS: BUN/Creatinine Ratio 7.9 (10.0-20.0); Bilirubin, Total 0.8 mg/dL (0.2-1.0); Total Protein 7.3 g/dL (6.4-8.2)
[2023-03-24] MEDS ORDERED: IOHEXOL 350 MG/ML 100ML IJ ONE (19:13)
[2023-03-24] MEDS ORDERED: MORPHINE SULFATE INJ 2 MG/ml SYRG IV PRN ×2 (21:15→22:00)
[2023-03-24] MEDS ORDERED: ONDANSETRON HCL 4 MG/2 ML VIAL IV PRN (21:15)
[2023-03-24] MEDS ORDERED: DOCUSATE SOD 100 MG CAP PO PRN (21:15)
[2023-03-24] MEDS ORDERED: ACETAMINOPHEN 325 MG TAB PO PRN (21:15)
[2023-03-24] MEDS ORDERED: hydrALAZINE HCL 20 MG/ML VL IV PRN (21:30)
[2023-03-24] MEDS ORDERED: NITROGLYCERIN 0.4 MG SL TAB SL PRN (22:00)
[2023-03-24] MEDS: ATORVASTATIN 20 MG TAB PO SCH (22:45)
[2023-03-24] MEDS: APIXABAN 5 MG TAB PO SCH (22:45)
[2023-03-24] MEDS: FAMOTIDINE (10MG/ML) 2ML VL IV SCH (22:45)
[2023-03-24] MEDS: HYDROcodone-ACET 5/325MG TAB PO PRN (22:45)
[2023-03-25 07:12] LABS: Basophils # (auto) 0 10 ^3/uL (0-0.2); Basophils % (auto) 0.9 % (0.0-2.0); Eosinophils # (auto) 0.1 10 ^3/uL (0-0.8); Eosinophils % (auto) 2.1 % (0.0-7.0); Hematocrit 42.6 % (41.0-53.0); Hemoglobin 14.7 g/dL (13.5-17.5); Lymphocytes # (auto) 0.8 10 ^3/uL (0.4-5.4); Lymphocytes % (auto) 15.5 % (10.0-50.0); Mean Corpuscular Hemoglobin 30.3 pg (28.0-32.0); Mean Corpuscular Hgb Conc. 34.4 g/dL (32.0-36.0); Mean Corpuscular Volume 88.1 fL (80.0-100.0); Monocytes # (auto) 0.4 10 ^3/uL (0-1.3); Neutrophils % (auto) 73.5 % (37.0-80.0); Nucleated Red Blood Cells % 0.1 %; Red Blood Cells 4.84 10^6/uL (4.5-5.90); Red Cell Distribution Width 15.8 % (11.8-14.3); White Blood Cell 5.4 10^3/uL (4.4-10.8)
[2023-03-25 07:56] LABS: Potassium 3.7 mmol/L (3.5-5.1)
[2023-03-25 08:02] LABS: Albumin 3.7 g/dL (3.4-5.0); BUN/Creatinine Ratio 9.6 (10.0-20.0); Bilirubin, Total 0.7 mg/dL (0.2-1.0); Calcium 9.5 mg/dL (8.5-10.1); Total Protein 7.4 g/dL (6.4-8.2)
[2023-03-25 08:08] LABS: Urine Bacteria NONE SEEN /hpf (None Seen); Urine Blood Negative /uL (Negative); Urine WBC <1 /hpf (0 - 3)
[2023-03-25 08:13] LABS: Urine Specific Gravity > 1.050 (1.001-1.035)
[2023-03-25] MEDS: FAMOTIDINE (10MG/ML) 2ML VL IV SCH ×2 (09:35→22:31)
[2023-03-25] MEDS: amLODIPine BESYLATE 5 MG TAB PO SCH (09:35)
[2023-03-25] MEDS: SERTRALINE HCL 50 MG TAB PO SCH (09:35)
[2023-03-25] MEDS: ASPirin 81 mg TAB PO SCH (09:35)
[2023-03-25] MEDS: APIXABAN 5 MG TAB PO SCH ×2 (09:36→22:31)
[2023-03-25] MEDS: SODIUM CHLORIDE 0.9% 1,000 ML IV SCH (11:00)
[2023-03-25] MEDS ORDERED: SODIUM CHLORIDE 0.9% 250 ML IV ONE (11:00)
[2023-03-25 13:00] VITALS: BP 120/81
[2023-03-25 16:52] VITALS: BP 128/77
[2023-03-25 22:00] VITALS: BP 114/75
[2023-03-25] MEDS: ATORVASTATIN 20 MG TAB PO SCH (22:31)
[2023-03-26] MEDS: SODIUM CHLORIDE 0.9% 1,000 ML IV SCH (03:07)
[2023-03-26] MEDS ORDERED: MELATONIN 5 MG TAB PO ONE (03:30)
[2023-03-26 05:00] VITALS: BP 157/86
[2023-03-26 08:30] VITALS: BP 153/86
[2023-03-26 09:00] VITALS: BP 153/86
[2023-03-26] MEDS: ASPirin 81 mg TAB PO SCH (10:28)
[2023-03-26] MEDS: FAMOTIDINE (10MG/ML) 2ML VL IV SCH (10:28)
[2023-03-26] MEDS: APIXABAN 5 MG TAB PO SCH (10:28)
[2023-03-26] MEDS: SERTRALINE HCL 50 MG TAB PO SCH (10:29)
[2023-03-26] MEDS: HYDROcodone-ACET 5/325MG TAB PO PRN (10:32)
[2023-03-26] MEDS: amLODIPine BESYLATE 5 MG TAB PO SCH (10:34)
[2023-03-26] MEDS ORDERED: amLODIPine BESYLATE 5 MG TAB PO ONE (10:45)
[2023-03-26] MEDS ORDERED: AMLO-496 PO (10:49)
[2023-03-26 11:22] LABS: BUN/Creatinine Ratio 10.4 (10.0-20.0); Calcium 8.2 mg/dL (8.5-10.1); Potassium 3.5 mmol/L (3.5-5.1)
[2023-03-26 13:00] VITALS: BP 138/84
[2023-03-26 14:06] VITALS: BP 138/84
[2023-03-27] MEDS ORDERED: amLODIPine BESYLATE 5 MG TAB PO SCH (10:00)
== END 2023-03-26 17:00 | disposition home or self-care (01) | DRG 313 ==
LOC: EDBD 17:28 → ER 17:28 → TELE 21:48 → TELE-EAST 03-25 16:58
PROVIDERS: ADMIT Nurse Practitioner Family; ATTEND Internal Medicine
DX: R07.89 Other chest pain (principal); N17.9 Acute kidney failure, unspecified; E66.01 Morbid (severe) obesity due to excess calories; I48.91 Unspecified atrial fibrillation; F32.A Depression, unspecified; F41.9 Anxiety disorder, unspecified; R26.81 Unsteadiness on feet; I12.9 Hypertensive chronic kidney disease with stage 1 through stage 4 chronic kidney disease, or unspecified chronic kidney disease; K21.9 Gastro-esophageal reflux disease without esophagitis; J44.9 Chronic obstructive pulmonary disease, unspecified; N18.30 Chronic kidney disease, stage 3 unspecified; Z80.9 Family history of malignant neoplasm, unspecified; Z86.711 Personal history of pulmonary embolism; Z86.718 Personal history of other venous thrombosis and embolism; Z85.46 Personal history of malignant neoplasm of prostate; Z68.39 Body mass index [BMI] 39.0-39.9, adult
CPT/HCPCS: 36415; 71275; 76775; 80048; 80053; 81001; 84484; 85025; 85379; 87081; 93005; 93306; 96361; 96374; 96375; G0378; J3490

== ENCOUNTER 2023-05-04 13:02 | Inpatient (IN) | payer OTHER, MEDICAID ==
[~2023-05-04] VITALS: Ht 182.9 cm; Wt 142.5 kg
[~2023-05-04 13:02] MED LIST changes: -AML5T PO; +AMLO1TAB23 PO; +FOLI-119 PO; -FOLI1TAB6 PO; +SERT-206 PO; -SERT50TA19 PO
[2023-05-04 13:37] LABS: Partial Thromboplastin Time 27.9 sec (24.6-33.4)
[2023-05-04 13:38] LABS: Basophils # (auto) 0 10 ^3/uL (0-0.2); Basophils % (auto) 0.6 % (0.0-2.0); Eosinophils # (auto) 0.1 10 ^3/uL (0-0.8); Eosinophils % (auto) 0.9 % (0.0-7.0); Hematocrit 42.8 % (41.0-53.0); Hemoglobin 14.2 g/dL (13.5-17.5); Lymphocytes # (auto) 0.8 10 ^3/uL (0.4-5.4); Lymphocytes % (auto) 12.9 % (10.0-50.0); Mean Corpuscular Hemoglobin 29.7 pg (28.0-32.0); Mean Corpuscular Hgb Conc. 33.1 g/dL (32.0-36.0); Mean Corpuscular Volume 89.8 fL (80.0-100.0); Monocytes # (auto) 0.5 10 ^3/uL (0-1.3); Monocytes % (auto) 7.5 % (0.0-12.0); Neutrophils # (auto) 4.9 10 ^3/uL (1.6-8.6); Neutrophils % (auto) 78.1 % (37.0-80.0); Nucleated Red Blood Cells % 0.1 %; Red Blood Cells 4.77 10^6/uL (4.5-5.90); Red Cell Distribution Width 15.5 % (11.8-14.3); White Blood Cell 6.3 10^3/uL (4.4-10.8)
[2023-05-04 13:50] LABS: Albumin 4.1 g/dL (3.4-5.0); Calcium 8.7 mg/dL (8.5-10.1); Potassium 4.1 mmol/L (3.5-5.1)
[2023-05-04 13:56] LABS: BUN/Creatinine Ratio 12.1 (10.0-20.0); Bilirubin, Total 0.5 mg/dL (0.2-1.0); Total Protein 7.7 g/dL (6.4-8.2)
[2023-05-04] MEDS ORDERED: FUROSEMIDE 20 MG/2 ML VIAL IV ONE (18:00)
[2023-05-04] MEDS ORDERED: methylPREDNISolone SOD SUCC 125 MG/2 ML VL IV ONE (18:00)
[2023-05-04] MEDS ORDERED: IPRATROPIUM BROM 0.5 MG/2.5ML INH SOL NEB PRN (19:15)
[2023-05-04] MEDS ORDERED: NITROGLYCERIN 0.4 MG SL TAB SL PRN (19:15)
[2023-05-04] MEDS ORDERED: ALBUTEROL SULF 2.5 MG/0.5ML(0.5%) NEB SOLN NEB PRN (19:15)
[2023-05-04] MEDS ORDERED: ENOXAPARIN SOD 40 MG/0.4 ML SYRINGE SC ONE (19:15)
[2023-05-04] MEDS ORDERED: MORPHINE SULFATE INJ 2 MG/ml SYRG IV PRN (19:15)
[2023-05-04 19:57] VITALS: BP 141/81
[2023-05-04] MEDS: traZODone HCL 50 MG TAB PO SCH (22:13)
[2023-05-05 05:12] LABS: Basophils # (auto) 0 10 ^3/uL (0-0.2); Basophils % (auto) 0.1 % (0.0-2.0); Eosinophils # (auto) 0 10 ^3/uL (0-0.8); Eosinophils % (auto) 0.1 % (0.0-7.0); Hematocrit 42.7 % (41.0-53.0); Hemoglobin 14.6 g/dL (13.5-17.5); Lymphocytes # (auto) 0.5 10 ^3/uL (0.4-5.4); Lymphocytes % (auto) 10.3 % (10.0-50.0); Mean Corpuscular Hemoglobin 30.6 pg (28.0-32.0); Mean Corpuscular Hgb Conc. 34.1 g/dL (32.0-36.0); Mean Corpuscular Volume 89.8 fL (80.0-100.0); Monocytes # (auto) 0.1 10 ^3/uL (0-1.3); Monocytes % (auto) 1.6 % (0.0-12.0); Neutrophils # (auto) 4.4 10 ^3/uL (1.6-8.6); Neutrophils % (auto) 87.9 % (37.0-80.0); Nucleated Red Blood Cells % 0.4 %; Red Blood Cells 4.75 10^6/uL (4.5-5.90); Red Cell Distribution Width 15.6 % (11.8-14.3)
[2023-05-05 05:17] LABS: Albumin 3.8 g/dL (3.4-5.0); BUN/Creatinine Ratio 14.9 (10.0-20.0); Calcium 9.2 mg/dL (8.5-10.1); Potassium 4.2 mmol/L (3.5-5.1)
[2023-05-05 05:20] LABS: Bilirubin, Total 0.4 mg/dL (0.2-1.0); Total Protein 7.7 g/dL (6.4-8.2)
[2023-05-05] MEDS ORDERED: ENOXAPARIN SOD 40 MG/0.4 ML SYRINGE SC SCH ×2 (10:00→11:00)
[2023-05-05] MEDS ORDERED: FUROSEMIDE 20 MG/2 ML VIAL IV SCH (10:00)
[2023-05-05] MEDS: SERTRALINE HCL 50 MG TAB PO SCH (11:03)
[2023-05-05] MEDS: amLODIPine BESYLATE 5 MG TAB PO SCH (11:04)
[2023-05-05] MEDS: PANTOPRAZOLE 40 MG TAB PO SCH (11:04)
[2023-05-05] MEDS: ASPirin-EC 81 mg tab PO SCH (11:05)
[2023-05-05] MEDS: THIAMINE HCL 100 MG TAB PO SCH (11:05)
[2023-05-05] MEDS: FOLIC ACID 1 MG TAB PO SCH (11:05)
[2023-05-05] MEDS: FUROSEMIDE 20 MG/2 ML VIAL IV SCH ×2 (17:03→22:18)
[2023-05-05 18:00] VITALS: BP 143/86
[2023-05-05] MEDS: APIXABAN 5 MG TAB PO SCH (19:09)
[2023-05-05 20:00] VITALS: BP 131/79
[2023-05-05 22:00] VITALS: BP 131/79
[2023-05-05] MEDS: traZODone HCL 50 MG TAB PO SCH (22:17)
[2023-05-05] MEDS: ATORVASTATIN 20 MG TAB PO SCH (22:18)
[2023-05-06] VITALS (7 sets, daily range): BP systolic 114–146; BP diastolic 62–82
[2023-05-06] MEDS: amLODIPine BESYLATE 5 MG TAB PO SCH (09:42)
[2023-05-06] MEDS: APIXABAN 5 MG TAB PO SCH ×2 (09:43→18:57)
[2023-05-06] MEDS: FOLIC ACID 1 MG TAB PO SCH (09:43)
[2023-05-06] MEDS: THIAMINE HCL 100 MG TAB PO SCH (09:43)
[2023-05-06] MEDS: PANTOPRAZOLE 40 MG TAB PO SCH (09:43)
[2023-05-06] MEDS: SERTRALINE HCL 50 MG TAB PO SCH (09:43)
[2023-05-06] MEDS: ASPirin-EC 81 mg tab PO SCH (09:43)
[2023-05-06] MEDS: FUROSEMIDE 20 MG/2 ML VIAL IV SCH ×2 (09:47→22:15)
[2023-05-06] MEDS ORDERED: IPRATROPIUM BROM 0.5 MG/2.5ML INH SOL NEB PRN (13:15)
[2023-05-06] MEDS ORDERED: ALBUTEROL SULF 2.5 MG/0.5ML(0.5%) NEB SOLN NEB PRN (13:15)
[2023-05-06] MEDS: ACETAMINOPHEN/CODEINE#3 (300/30mg) TAB PO PRN ×2 (13:32→18:58)
[2023-05-06] MEDS: ATORVASTATIN 20 MG TAB PO SCH (22:16)
[2023-05-06] MEDS: traZODone HCL 50 MG TAB PO SCH (22:16)
[2023-05-07 05:00] VITALS: BP 133/79
[2023-05-07 08:00] VITALS: BP 123/67
[2023-05-07] MEDS: APIXABAN 5 MG TAB PO SCH ×2 (08:41→18:30)
[2023-05-07] MEDS: ASPirin-EC 81 mg tab PO SCH (08:41)
[2023-05-07] MEDS: FOLIC ACID 1 MG TAB PO SCH (08:41)
[2023-05-07] MEDS: amLODIPine BESYLATE 5 MG TAB PO SCH (08:41)
[2023-05-07] MEDS: SERTRALINE HCL 50 MG TAB PO SCH (08:42)
[2023-05-07] MEDS: ACETAMINOPHEN/CODEINE#3 (300/30mg) TAB PO PRN ×3 (08:42→21:11)
[2023-05-07] MEDS: PANTOPRAZOLE 40 MG TAB PO SCH (08:42)
[2023-05-07] MEDS: THIAMINE HCL 100 MG TAB PO SCH (08:43)
[2023-05-07] MEDS: FUROSEMIDE 20 MG/2 ML VIAL IV SCH ×2 (08:43→22:22)
[2023-05-07 13:11] VITALS: BP 121/81
[2023-05-07 16:38] VITALS: BP 120/73
[2023-05-07 22:00] VITALS: BP 135/72
[2023-05-07] MEDS: ATORVASTATIN 20 MG TAB PO SCH (22:21)
[2023-05-07] MEDS: traZODone HCL 50 MG TAB PO SCH (22:21)
[2023-05-08 05:00] VITALS: BP 147/78
[2023-05-08 09:00] VITALS: BP 112/65
[2023-05-08] MEDS: APIXABAN 5 MG TAB PO SCH (09:57)
[2023-05-08] MEDS: amLODIPine BESYLATE 5 MG TAB PO SCH (09:57)
[2023-05-08] MEDS: PANTOPRAZOLE 40 MG TAB PO SCH (09:57)
[2023-05-08] MEDS: FOLIC ACID 1 MG TAB PO SCH (09:57)
[2023-05-08] MEDS: SERTRALINE HCL 50 MG TAB PO SCH (09:58)
[2023-05-08] MEDS: THIAMINE HCL 100 MG TAB PO SCH (09:58)
[2023-05-08] MEDS: ASPirin-EC 81 mg tab PO SCH (09:58)
[2023-05-08] MEDS: ACETAMINOPHEN/CODEINE#3 (300/30mg) TAB PO PRN ×2 (09:58→18:27)
[2023-05-08] MEDS: FUROSEMIDE 20 MG/2 ML VIAL IV SCH (09:59)
[2023-05-08 13:00] VITALS: BP 106/69
[2023-05-08 17:00] VITALS: BP 138/78
[2023-05-08] MEDS ORDERED: FURO1TAB31 PO (17:03)
[2023-05-08] MEDS ORDERED: ACET300T58 PO (17:04)
[2023-05-08 17:27] VITALS: BP 138/78
== END 2023-05-08 19:00 | disposition home or self-care (01) | DRG 291 ==
LOC: ER 13:02 → TELE 19:12 → TELE-WESTW 05-05 18:12
PROVIDERS: ADMIT Nurse Practitioner Family; ATTEND Internal Medicine
DX: I13.0 Hypertensive heart and chronic kidney disease with heart failure and stage 1 through stage 4 chronic kidney disease, or unspecified chronic kidney disease (principal); I50.33 Acute on chronic diastolic (congestive) heart failure; I48.20 Chronic atrial fibrillation, unspecified; Z68.41 Body mass index [BMI] 40.0-44.9, adult; E66.01 Morbid (severe) obesity due to excess calories; F41.9 Anxiety disorder, unspecified; F51.04 Psychophysiologic insomnia; K21.9 Gastro-esophageal reflux disease without esophagitis; N18.9 Chronic kidney disease, unspecified; Z79.01 Long term (current) use of anticoagulants; Z80.42 Family history of malignant neoplasm of prostate; Z80.8 Family history of malignant neoplasm of other organs or systems; Z71.3 Dietary counseling and surveillance; Z82.5 Family history of asthma and other chronic lower respiratory diseases; Z86.711 Personal history of pulmonary embolism; Z86.718 Personal history of other venous thrombosis and embolism; Z91.199 Patient's noncompliance with other medical treatment and regimen due to unspecified reason; Z92.3 Personal history of irradiation; Z85.46 Personal history of malignant neoplasm of prostate
CPT/HCPCS: 36415; 71045; 80053; 83735; 83880; 84153; 84484; 85025; 85610; 85730; 87081; 93005; 93970; G0378

== ENCOUNTER 2025-01-26 15:12 | Emergency (ER) | payer MEDICAID, OTHER ==
[~2025-01-26] VITALS: Ht 182.9 cm; Wt 127.2 kg
[~2025-01-26 15:12] MED LIST changes: +FURO1TAB31 PO
[2025-01-26 16:00] VITALS: PULSE 91; RESP 12; O2SAT 94
[2025-01-26] MEDS: HYDROcodone-ACET 5/325MG TAB PO ONE (16:09)
--- NOTE | 2025-01-26 16:10 | ED.PDOC ---
HPI Comments 74Y M with PMHx HTN, PE, and bunion removal presents to ED via EMS for chief complaint chest pain x2days with SOB, cough, and leg tightness. Pt states chest pain is substernal, non-radiating, and is described as stretching. Pt states he had a similar episode 2 years ago and was dx with PE on bilateral lungs. Pt is currently taking Eliquis 5mg in the morning and another 5mg at night. Pt was previously prescribed diuretic but stopped taking it approximately 2 months ago due to urinating frequently. Pt also stated he has had 2 falls in the last week described as "blacking out". Pt reports worsening of chronic lt knee pain and rt hand pain due to his recent falls. Chief Complaint: Chest Pain Time Seen by MD: 15:42 Primary Care Provider: SINAN Reviewed Notes: Nurses Notes, Federal Law Clerk Notes, Medications, Allergies Allergies: Coded Allergies: NO KNOWN ALLERGIES (Unverified , 03/13/23) Home Meds Active Scripts Furosemide (Lasix) 40 Mg Tab, 40 MG PO DAILY for 30 Days, #30 TAB Prov:VENECIA JUAN MD 05/08/23 Amlodipine Besylate (Amlodipine Besylate) 10 Mg Tab, 10 MG PO DAILY, #30 MG Prov:BLAKE RIGGS MD 03/26/23 Apixaban Base (ELIQUIS) 5 Mg Tab, 5 MG PO BID for 30 Days, #60 TAB Please start 5 mg p.o. twice a day on03/23/2023 after finishing up to 10 p.o. twice daily for 1 week. Prov:VENECIA JUAN MD 03/15/23 Reported Medications Trazodone Hcl (Trazodone Hcl) 150 Mg Tab, 150 MG PO HS 03/15/23 Thiamine Hcl (Thiamine Hcl) 100 Mg Tab, 100 MG PO DAILY 03/15/23 Sertraline Hcl (Sertraline Hcl) 50 Mg Tab, 25 MG PO DAILY 03/15/23 Omeprazole (Gnp Omeprazole) 20 Mg Tab, 1 TAB PO DAILY 03/15/23 Folic Acid (Folic Acid) 1 Mg Tab, 1 MG PO DAILY 03/15/23 Information Source: Patient, Emergency Med Personnel Mode of Arrival: EMS Brought in by: EMS Severity: Moderate Timing: Days Duration: Since onset Prehospital treatment: None Location: Substernal Radiation: No Radiation Quality: Other (stretching) Onset: At Rest Cardiac Risk Factors: HTN PE Risk Factors: None History of: DVT/PE Modifying Factors: Nothing Associated Signs and Symptoms: SOB, Other Past Medical History PAST MEDICAL HISTORY: AFIB, Anxiety, Cancer, Depression, GERD, HTN, PE Surgical History: Tonsillectomy Family History Family History: Family hx of Cancer Social History Smoker: Non-Smoker Alcohol: Heavy Drugs: Denies Drug Use Lives In: Home Constitutional: denies: chills, diaphoresis, fatigue, fever, malaise, sweats, weakness, others EENTM: denies: blurred vision, double vision, ear bleeding, ear discharge, ear drainage, ear pain, ear ringing, eye pain, eye redness, hearing loss, mouth pain, mouth swelling, nasal discharge, nose bleeding, nose congestion, nose pain, photophobia, tearing, throat pain, throat swelling, voice changes, others Respiratory: reports: cough, shortness of breath; denies: hemoptysis, orthopnea, SOB at rest, SOB with excertion, stridor, wheezing, others Cardiovascular: reports: chest pain, edema; denies: dizzy spells, diaphoresis, Dyspnea on exertion, irregular heart beat, left arm pain, lightheadedness, palpitations, PND, syncope, others Gastrointestinal: denies: abdomen distended, abdominal pain, blood streaked bowels, constipated, diarrhea, dysphagia, difficulty swallowing, hematemesis, melena, nausea, poor appetite, poor fluid intake, rectal bleeding, rectal pain, vomiting, others Genitourinary: denies: burning, dysuria, flank pain, frequency, hematuria, incontinence, penile discharge, penile sore, pain, testicle pain, testicle swelling, urgency, others Neurological: denies: dizziness, fainting, headache, left sided numbness, left sided weakness, numbness, paresthesia, pre-existing deficit, right sided numb ness, right sided weakness, seizure, speech problems, tingling, tremors, weakness, others Musculoskeletal: reports: others (BLE tightness, LLE pain, Rt hand pain); denies: back pain, gout, joint pain, joint swelling, muscle pain, muscle stiffness, neck pain Integumetry: denies: bruises, change in color, change in hair/nails, dryness, laceration, lesions, lumps, rash, wounds, others Allergic/Immunocompromised: denies: Difficulty Healing, Frequent Infections, Hives, Itching, others Hematologic/Lymphatic: denies: anemia, blood clots, easy bleeding, easy bruising, swollen glands, others Endocrine: denies: excessive hunger, excessive sweating, excessive thirst, excessive urination, flushing, intolerance to cold, intolerance to heat, unexplained weight gain, unexplained weight loss, others Psychiatric: denies: anxiety, bipolar disorder, depression, hopeless, panic disorder, schizophrenia, sleepless, suicidal, others All Other Systems: Reviewed and Negative Physical Exam General Appearance: Mild Distress, Obese HEENT: Other (Pupils and face symmetric. Moist mucous membranes.) Neck: Full Range of Motion, Normal Inspection Respiratory: Decreased Breath Sounds, No Accessory Muscle Use, No Respiratory Distress Cardiovascular: No JVD, Regular Rate/Rhythm Breast Exam: Deferred Gastrointestinal: Non Tender, Soft Genitalia: Deferred Pelvic: Deferred Rectal: Deferred Extremities: Leg edema, Pedal edema, Other (Left knee diffuse soft tissue tenderness and soft tissue swelling. Right hand diffuse soft tissue tenderness and soft tissue swelling.) Neurologic: Alert (Oriented x4), Normal Affect, Normal Mood, Sensory Deficit Cerebellar Function: NOT DONE Reflexes: NOT DONE Skin: Dry, Normal Color, Warm Lymphatic: NOT DONE EKG EKG : Comments Sinus rhythm, rate 95, normal WA and QRS intervals, QTC 473, normal axis, possible old inferior or anteroseptal infarct, no ST/T changes. Was a procedure done? Was a procedure done?: No CP Differential Dx Differential Diagnosis: Angina, Atrial Dysrhythmia, Electrolyte Disorder, Heart Failure, RI, Pulmonary Embolus Differential Diagnosis: CHF, HTN Encephalopathy Differential Diagnosis: Angina, Chest Wall Pain, Myocardial Infarction, Pericarditis, Pneumonia, Pneumothorax X-Ray, Labs, Meds, VS Vital Signs Date Time Temp Pulse Resp B/P (MAP) Pulse Ox O2 Delivery O2 Flow Rate FiO2 01/26/25 22:01 80 10 159/90 01/26/25 22:00 80 10 159/90 (113) 96 01/26/25 21:31 78 14 147/81 01/26/25 20:00 91 01/26/25 19:27 98.7 78 14 147/81 (103) 98 98.7 01/26/25 19:27 78 14 98 Room Air* 0 21 01/26/25 19:00 80 14 144/91 (108) 95 01/26/25 17:40 88 12 144/74 (97) 94 01/26/25 16:00 91 12 94 Room Air* 0 21 01/26/25 16:00 81 01/26/25 15:57 98.0 99 16 109/71 (84) 96 01/26/25 15:42 98.1 91 12 125/66 (85) 94 98.1 01/26/25 15:16 95 Lab Test 01/26/25 21:15 01/26/25 20:05 01/26/25 19:00 01/26/25 17:42 Range/Units Troponin I High Sensitivity 4 3 L </=54 ng/L D-Dimer, Quantitative 0.34 0.0-0.49 mg/L FEU Urine Color Yellow Yellow Urine Clarity Clear Clear Urine pH 6.0 5.0-9.0 Urine Specific [place] 1.036 H 1.001-1.035 Urine Protein 1+ H Negative Urine Ketones Trace Negative Urine Blood Negative Negative /uL Urine Nitrite Negative Negative Urine Bilirubin Negative Negative Urine Urobilinogen 4 H Negative mg/dL Urine Leukocyte Esterase Negative Negative /uL Urine RBC 9 0 - 3 /hpf Urine Microscopic WBC 1 0-3 /HPF Urine Squamous Epithelial Cells Few <5 /hpf Urine Bacteria None seen None Seen /hpf Urine Hyaline Casts Mod 0 - 2 /lpf Urine Mucus Few None Seen Urine Glucose Normal Normal mg/dL Test 01/26/25 16:05 Range/Units White Blood Count 8.0 4.4-10.8 10^3/uL Red Blood Count 4.89 4.5-5.90 10^6/uL Hemoglobin 13.9 13.5-17.5 g/dL Hematocrit 42.2 41.0-53.0 % Mean Corpuscular Volume 86.4 80.0-100.0 fL Mean Corpuscular Hemoglobin 28.4 28.0-32.0 pg Mean Corpuscular Hemoglobin Concent 32.8 32.0-36.0 g/dL Red Cell Distribution Width 15.6 H 11.8-14.3 % Platelet Count 147 140-450 10^3/uL Mean Platelet Volume 8.0 6.9-10.8 fL Neutrophils (%) (Auto) 79.9 37.0-80.0 % Lymphocytes (%) (Auto) 10.3 10.0-50.0 % Monocytes (%) (Auto) 8.2 0.0-12.0 % Eosinophils (%) (Auto) 1.1 0.0-7.0 % Basophils (%) (Auto) 0.5 0.0-2.0 % Neutrophils # (Auto) 6.4 1.6-8.6 10 ^3/uL Lymphocytes # (Auto) 0.8 0.4-5.4 10 ^3/uL Monocytes # (Auto) 0.7 0-1.3 10 ^3/uL Eosinophils # (Auto) 0.1 0-0.8 10 ^3/uL Basophils # (Auto) 0 0-0.2 10 ^3/uL Nucleated Red Blood Cells 0.0 % Sodium Level 143 136-145 mmol/L Potassium Level 4.1 3.5-5.1 mmol/L Chloride Level 109 H 98-107 mmol/L Carbon Dioxide Level 22 20-31 mmol/L Anion Gap 12 5-15 Blood Urea Nitrogen 24 H 9-23 mg/dL Creatinine 1.63 H 0.700-1.30 mg/dL Glomerular Filtration Rate Calc 44 >90 mL/min BUN/Creatinine Ratio 14.7 10.0-20.0 Serum Glucose 99 74-106 mg/dL Calcium Level 9.6 8.7-10.4 mg/dL Troponin I High Sensitivity 3 L </=54 ng/L B-Type Natriuretic Peptide 18.13 0-100 pg/mL Lipase 69 H 12-53 U/L Current Medications Medications (Trade) Dose Ordered Sig/Rick Route Start Time Stop Time Status Last Admin Acetaminophen/ Hydrocodone Bitart ([place] 5/325MG Tab) 1 tab ONCE ONCE PO 01/26/25 16:00 01/26/25 16:01 DC 01/26/25 16:09 Morphine Sulfate 4 mg ONCE ONCE IV 01/26/25 21:30 01/26/25 21:31 DC 01/26/25 21:31 Ondansetron HCl (Zofran) 4 mg ONCE ONCE IV 01/26/25 21:30 01/26/25 21:31 DC 01/26/25 21:30 Atorvastatin Calcium (Lipitor) 40 mg HS PO 01/26/25 22:00 01/26/25 22:41 DC 01/26/25 22:27 Famotidine (Pepcid Tablet) 20 mg BID PO 01/26/25 22:00 01/26/25 22:41 DC 01/26/25 22:27 Enoxaparin Sodium (Lovenox) 130 mg ONCE ONCE SC 01/26/25 22:00 01/26/25 22:41 DC 01/26/25 22:28 ORDERING PHYSICIAN: BACILIO SHARIF MD PROCEDURE(s): CXRP - CHEST PORTABLE REASON: cp ORDER NUMBER(s): [id number], ACCESSION NUMBER(s): [id number] EXAM: XY CHEST PORTABLE TECHNIQUE: Single frontal chest radiograph CLINICAL HISTORY: cp COMPARISON: XY CHEST XRAY 1 VIEW on DOS: 05/04/23, XY CHEST XRAY 1 VIEW on DOS: 03/13/23, CXRP on DOS: 07/08/22 Findings/Impression: Frontal chest radiograph demonstrates no acute osseous or superficial soft tissue abnormalities. The trachea is midline. The cardiac silhouette and mediastinum are within normal limits. No pneumothorax, pleural effusions, or consolidations. RING PHYSICIAN: BACILIO SHARIF MD PROCEDURE(s): RHAN - R HAND 3 VIEW XRAY REASON: pain swelling ORDER NUMBER(s): [id number], ACCESSION NUMBER(s): [id number] CLINICAL INDICATION: pain swelling TECHNIQUE: XY R HAND 3 VIEW XRAY Comparison: None FINDINGS/IMPRESSION: : There is no evidence of acute fracture or dislocation. Soft tissues are unremarkable. Diffuse degenerative changes most prominent at the radiocarpal joint space and 2nd and 3rd MCP joints. Well corticated ossific density at the dorsal aspect of the 5th distal interphalangeal joint may be related to prior trauma / injury. RING PHYSICIAN: BACILIO SHARIF MD PROCEDURE(s): LKNE3 - L KNEE 3V XRAY REASON: pain swelling ORDER NUMBER(s): [id number], ACCESSION NUMBER(s): [id number] CLINICAL INDICATION: pain swelling TECHNIQUE: XY L KNEE 3V XRAY Comparison: XY L KNEE 4V XRAY on DOS: 03/13/23 FINDINGS/IMPRESSION: : There is no evidence of acute fracture or dislocation. Severe tricompartmental degenerative changes. Small joint effusion. RING PHYSICIAN: BACILIO SHARIF MD PROCEDURE(s): BLDVT - BiLat Lower DVT REASON: edema ORDER NUMBER(s): [id number], ACCESSION NUMBER(s): [id number] Bilateral lower extremity venous duplex Clinical History: edema Comparison: US BILAT LOWER DVT on DOS: 05/04/23, US LT LOWER DVT on DOS: 03/13/23, BLDVT on DOS: 07/08/22, BI LOWER DVT on DOS: 07/08/22 Technique: Duplex Doppler evaluation of the deep venous systems of both lower extremities from the common femoral veins to the popliteal veins including color Doppler and spectral/pulsed waveform analysis was performed. Findings: RIGHT SIDE: The common femoral vein demonstrates appropriate compressibility and waveform variability. There is compressibility/patency of the great saphenous vein at the proximal thigh. The femoral vein demonstrates appropriate compressibility and waveform variability. The deep femoral vein demonstrates appropriate compressibility and waveform variability. The popliteal vein demonstrates appropriate compressibility and waveform variability. There is normal compressibility at the tibioperoneal trunk. LEFT SIDE: The common femoral vein demonstrates appropriate compressibility and waveform variability. There is compressibility/patency of the great saphenous vein at the proximal thigh. The femoral vein demonstrates appropriate compressibility and waveform variability. The deep femoral vein demonstrates appropriate compressibility and waveform variability. The popliteal vein demonstrates appropriate compressibility and waveform variability. There is normal compressibility at the tibioperoneal trunk. Impression: No right or left femoropopliteal venous thrombosis. RING PHYSICIAN: BACILIO SHARIF MD PROCEDURE(s): RUDVT - Rt Upper DVT REASON: pain, edema ORDER NUMBER(s): [id number], ACCESSION NUMBER(s): [id number] EXAM: US RT UPPER DVT Clinical History: pain, edema Comparison: US LT LOWER DVT on DOS: 03/13/23 Technique: Duplex Doppler evaluation of the deep venous systems of the right upper extremity including color Doppler and spectral/pulsed waveform analysis was performed. Findings: Normal compressibility and color Doppler flow is seen in the right upper extremity veins including the internal jugular, subclavian, axillary, brachial, radial and ulnar veins. Impression: 1. No sonographic evidence for right upper extremity DVT. X-Ray, Labs, Meds, VS Comment 74Y M with PMHx HTN, PE, AFib presents to ED via EMS for chief complaint chest pain x2days with SOB, cough, left knee and right hand pain status post 2 falls recently and possible syncope. Vitals remarkable for oxygen saturation 94% on room air Exam remarkable for left knee diffuse soft tissue swelling and tenderness, right hand diffuse soft tissue swelling and tenderness, 2+ edema bilateral lower extremities Rhythm strip independently interpreted by me: Sinus rhythm, rate 95, no ectopy. Head CT unremarkable Chest x-ray Findings/Impression: Frontal chest radiograph demonstrates no acute osseous or superficial soft tissue abnormalities. The trachea is midline. The cardiac silhouette and mediastinum are within normal limits. No pneumothorax, pleural effusions, or consolidations. Right upper extremity and bilateral lower extremity Doppler ultrasound negative for DVT Left knee x-rays: FINDINGS/IMPRESSION: : There is no evidence of acute fracture or dislocation. Severe tricompartmental degenerative changes. Small joint effusion. Right Hand x-rays: FINDINGS/IMPRESSION: : There is no evidence of acute fracture or dislocation. Soft tissues are unremarkable. Diffuse degenerative changes most prominent at the radiocarpal joint space and 2nd and 3rd MCP joints. Well corticated ossific density at the dorsal aspect of the 5th distal interphalangeal joint may be related to prior trauma / injury. CBC unremarkable, metabolic panel remarkable for BUN 24, creatinine 1.63, troponins negative x2, BNP normal, lipase elevated at 69, UA unremarkable , D- dimer pending Patient treated with the following in the ED: Pennock 5/325 mg 1 tab p.o. On re-evaluation, patient states pain has somewhat improved. Vitals were stable. Plan is to admit the patient for V/Q scan in the morning to rule out PE, and Cardiology evaluation Case discussed with [facility]. Will accept the patient. Authorization [id number] Time of 1ST Reevaluation: 16:12 Reevaluation 1ST: Unchanged Patient Education/Counseling: Diagnosis, Treatment Family Education/Counseling: No Family Present Departure 1 Departure Time of Disposition: 20:56 Impression: Primary Impression: Acute chest pain Additional Impressions: Syncope and collapse Multiple falls Contusion of left knee Qualified Codes: S80.02XA - Contusion of left knee, initial encounter Contusion of right hand Qualified Codes: S60.221A - Contusion of right hand, initial encounter Disposition: 02 SHORT TERM HOSPITAL Admit to: Tele Condition: Guarded Critical Care Note Critical Care Time?: No Stability Stability form required: No Heart Score Heart Score: Heart Score Response (Comments) Value History Moderate Suspicious 1 EKG Normal 0 Age >65 2 Risk Factors 1 or 2 risk factors 1 Troponin Normal limit 0 Total 4 I personally scribed for BACILIO SHARIF MD ([email or web address]) on 01/26/25 at 16:10. Electronically submitted by Carey Hernandez ([facility]). I personally scribed for BACILIO SHARIF MD ([email or web address]) on 01/26/25 at 16:28. Electronically submitted by Carey Hernandez ([email or web address]). I personally scribed for BACILIO SHARIF MD (BRAXTON) on 01/26/25 at 18:19. Electronically submitted by Carey Hernandez ([email or web address]). I personally scribed for BACILIO SHARIF MD ([email or web address]) on 01/26/25 at 18:19. Electronically submitted by Carey Hernandez ([facility] BACILIO SHARIF MD Jan 26, 2025 16:10
--- NOTE | 2025-01-26 16:19 | DVH ---
CLINICAL INDICATION: pain swelling TECHNIQUE: XY L KNEE 3V XRAY Comparison: XY L KNEE 4V XRAY on DOS: 03/13/23 FINDINGS/IMPRESSION: : There is no evidence of acute fracture or dislocation. Severe tricompartmental degenerative changes. Small joint effusion.
--- NOTE | 2025-01-26 16:20 | DVH ---
CLINICAL INDICATION: pain swelling TECHNIQUE: XY R HAND 3 VIEW XRAY Comparison: None FINDINGS/IMPRESSION: : There is no evidence of acute fracture or dislocation. Soft tissues are unremarkable. Diffuse degenerative changes most prominent at the radiocarpal joint space and 2nd and 3rd MCP joints . Well corticated ossific density at the dorsal aspect of the 5th distal interphalangeal joint may be r elated to prior trauma / injury.
[2025-01-26 16:33] LABS: Basophils # (auto) 0 10 ^3/uL (0-0.2); Basophils % (auto) 0.5 % (0.0-2.0); Eosinophils # (auto) 0.1 10 ^3/uL (0-0.8); Eosinophils % (auto) 1.1 % (0.0-7.0); Hematocrit 42.2 % (41.0-53.0); Hemoglobin 13.9 g/dL (13.5-17.5); Lymphocytes # (auto) 0.8 10 ^3/uL (0.4-5.4); Lymphocytes % (auto) 10.3 % (10.0-50.0); Mean Corpuscular Hemoglobin 28.4 pg (28.0-32.0); Mean Corpuscular Hgb Conc. 32.8 g/dL (32.0-36.0); Mean Corpuscular Volume 86.4 fL (80.0-100.0); Monocytes # (auto) 0.7 10 ^3/uL (0-1.3); Monocytes % (auto) 8.2 % (0.0-12.0); Neutrophils # (auto) 6.4 10 ^3/uL (1.6-8.6); Neutrophils % (auto) 79.9 % (37.0-80.0); Platelet Count (auto) 147 10^3/uL (140-450); Red Blood Cells 4.89 10^6/uL (4.5-5.90); Red Cell Distribution Width 15.6 % (11.8-14.3)
[2025-01-26 16:39] LABS: Potassium 4.1 mmol/L (3.5-5.1); Sodium 143 mmol/L (136-145)
[2025-01-26 16:40] LABS: Anion Gap 12 (5-15); Calcium 9.6 mg/dL (8.7-10.4); Carbon Dioxide 22 mmol/L (20-31)
[2025-01-26 16:45] LABS: BUN/Creatinine Ratio 14.7 (10.0-20.0); Glucose 99 mg/dL (74-106)
[2025-01-26 16:50] LABS: Blood Urea Nitrogen 24 mg/dL (9-23); Chloride 109 mmol/L (98-107); Lipase 69 U/L (12-53)
--- NOTE | 2025-01-26 18:16 | DVH ---
EXAM: US RT UPPER DVT Clinical History: pain, edema Comparison: US LT LOWER DVT on DOS: 03/13/23 Technique: Duplex Doppler evaluation of the deep venous systems of the right upper extremity including color D oppler and spectral/pulsed waveform analysis was performed. Findings: Normal compressibility and color Doppler flow is seen in the right upper extremity veins including th e internal jugular, subclavian, axillary, brachial, radial and ulnar veins. Impression: 1. No sonographic evidence for right upper extremity DVT.
--- NOTE | 2025-01-26 18:17 | DVH ---
Bilateral lower extremity venous duplex Clinical History: edema Comparison: US BILAT LOWER DVT on DOS: 05/04/23, US LT LOWER DVT on DOS: 03/13/23, BLDVT on DOS: 07/08/22 , BI LOWER DVT on DOS: 07/08/22 Technique: Duplex Doppler evaluation of the deep venous systems of both lower extremities from the common femora l veins to the popliteal veins including color Doppler and spectral/pulsed waveform analysis was perf ormed. Findings: RIGHT SIDE: The common femoral vein demonstrates appropriate compressibility and waveform variability. There is compressibility/patency of the great saphenous vein at the proximal thigh. The femoral vein demonstrates appropriate compressibility and waveform variability. The deep femoral vein demonstrates appropriate compressibility and waveform variability. The popliteal vein demonstrates appropriate compressibility and waveform variability. There is normal compressibility at the tibioperoneal trunk. LEFT SIDE: The common femoral vein demonstrates appropriate compressibility and waveform variability. There is compressibility/patency of the great saphenous vein at the proximal thigh. The femoral vein demonstrates appropriate compressibility and waveform variability. The deep femoral vein demonstrates appropriate compressibility and waveform variability. The popliteal vein demonstrates appropriate compressibility and waveform variability. There is normal compressibility at the tibioperoneal trunk. Impression: No right or left femoropopliteal venous thrombosis.
[2025-01-26 19:24] LABS: Urine Bacteria None Seen /hpf (None Seen)
[2025-01-26 19:27] VITALS: PULSE 78; RESP 14; O2SAT 98
[2025-01-26 19:38] LABS: Urine Blood Negative /uL (Negative); Urine Clarity Clear (Clear); Urine Color Yellow (Yellow); Urine Hyaline Cast MOD /lpf (0 - 2); Urine Mucus FEW (None Seen); Urine Protein, UAD 1+ (Negative); Urine Specific Gravity 1.036 (1.001-1.035); Urine Squamous Epithelial Cell FEW /hpf (<5); Urine Urobilinogen 4 mg/dL (Negative); Urine WBC 1 /HPF (0-3)
--- NOTE | 2025-01-26 21:26 | DVH ---
CT HEAD WITHOUT CONTRAST INDICATION: syncope, multiple falls COMPARISON: CT HEAD WITHOUT CONTRAST on DOS: 03/13/23 TECHNIQUE: CT of the head without intravenous contrast. RADIATION DOSE: CTDIvol: mGy, DLP: mGy*cm FINDINGS: There is no evidence of intracranial hemorrhage, acute infarct, extra-axial collection, mass effect, midline shift, herniation or hydrocephalus. Minimal microvascular ischemic change. Moderate ventricu lar enlargement and sulcal enlargement related to cerebral volume loss. The peter-white differentiatio n is preserved. Visualized paranasal sinuses and mastoid air cells are clear. Soft tissues and osse ous structures are unremarkable. IMPRESSION: No hemorrhage or other acute intracranial abnormality. Cerebral volume loss. No appreciable change compared to the prior CT scan from February 2023.
[2025-01-26] MEDS: ONDANSETRON HCL 4 MG/2 ML VIAL IV ONE (21:30)
[2025-01-26] MEDS: MORPHINE SULFATE 4 MG/ML SYR/VIAL IV ONE (21:31)
[2025-01-26] MEDS ORDERED: HYDROcodone-ACET 5/325MG TAB PO PRN (22:00)
[2025-01-26] MEDS ORDERED: ACETAMINOPHEN 325 MG TAB PO PRN (22:00)
[2025-01-26] MEDS ORDERED: ONDANSETRON HCL 4 MG/2 ML VIAL IV PRN (22:00)
[2025-01-26] MEDS: FAMOTIDINE 20 MG TAB PO SCH (22:27)
[2025-01-26] MEDS: ATORVASTATIN 20 MG TAB PO SCH (22:27)
[2025-01-26] MEDS: ENOXAPARIN SOD 150 MG/1 ML SYRINGE SC ONE (22:28)
[2025-01-27] MEDS: NITROGLYCERIN 2% OINT 1GM PKG TD ONE (00:17)
[2025-01-27 02:24] VITALS: BP 151/101; PULSE 78; RESP 14; TEMP 98.3; O2SAT 97
[2025-01-27] MEDS ORDERED: ASPirin 81 mg TAB PO SCH (10:00)
--- NOTE | 2025-01-28 16:18 | ECG ---
[facility] Test Date: 2025-01-26 Test Time: 15:16:52 Pat Name: NADYA DE JESUS Department: ER Room: Gender: M Deicer Finisher: MARGARETH : 1950 Requested By: BACILIO MONTGOMERY Order Number: [id number] Reading MD: Measurements Intervals [place] Rate: 95 P: 70 [place]: 165 QRS: 49 QRSD: 95 T: 35 QT: 376 QTc: 473 Interpretive Statements Unknown rhythm, irregular rate Please click the below link to view image of tracing.
== END 2025-01-27 02:30 | disposition short-term general hospital (02) ==
LOC: EDBD 15:12 → ER 15:12
DX: S80.02XA Contusion of left knee, initial encounter (principal); S60.221A Contusion of right hand, initial encounter; R29.6 Repeated falls; R55 Syncope and collapse; R07.89 Other chest pain; I10 Essential (primary) hypertension; F41.9 Anxiety disorder, unspecified; F32.A Depression, unspecified; I48.91 Unspecified atrial fibrillation; F10.90 Alcohol use, unspecified, uncomplicated; Z90.89 Acquired absence of other organs; Z79.899 Other long term (current) drug therapy; Z79.01 Long term (current) use of anticoagulants; W18.39XA Other fall on same level, initial encounter; Y93.89 Activity, other specified; Y92.89 Other specified places as the place of occurrence of the external cause; Y99.8 Other external cause status; Y90.0 Blood alcohol level of less than 20 mg/100 ml
CPT/HCPCS: 36415; 70450; 71045; 73130; 73562; 80048; 81001; 83690; 83880; 84484; 85025; 85379; 93970; 93971; 96372; 96374; 96375; 99285; J1650; J2270; J2405